=== PATIENT | male | born 1935 | race Caucasian/White ===

== ENCOUNTER → 2017-05-15 | Outpatient (CLI) | payer MEDICARE ==
[~2017-05-15] MED LIST: ATEN-155 PO; ATEN50TA PO; CEPH500C PO; CLIN300C3 PO; DOXY100C2; FINA1TAB10 PO; FINA5TAB6 PO; HYDR-1231 PO; OXYC-12 PO; SIMV20TA PO; SMV10T PO; SULF1TAB34 PO; TERA5CAP3 PO; TMSL.4C PO; TRAM-42 PO; WRF5T PO
--- NOTE | 2017-05-15 13:52 | Diagnostic Imaging Report ---
PROCEDURE: CT head without contrast. TECHNIQUE: Multiple contiguous axial images were obtained through the brain without the use of intravenous contrast. INDICATION: Trouble sleeping. F03.90. COMPARISON: 01/01/2014. FINDINGS: Prominent stable basal ganglia calcifications are seen bilaterally. There is no intracranial hemorrhage. There are mild periventricular and deep white matter hypodensities compatible with chronic microvascular ischemic changes, commonly seen at the patient's age. No hydrocephalus. No extra-axial fluid collection is seen. The calvarium, the paranasal sinuses, and orbits visualized portions appear grossly unremarkable. IMPRESSION: No acute process. Dictated by: Dictated on workstation # [id number]
== END ==
LOC: RAD 13:08
PROVIDERS: ATTEND Internal Medicine
DX: F03.90 Unspecified dementia, unspecified severity, without behavioral disturbance, psychotic disturbance, mood disturbance, and anxiety (principal)
CPT/HCPCS: 70450

== ENCOUNTER 2017-07-03 13:00 | Outpatient (CLI) | payer MEDICARE | END 2017-07-03 13:24 | disposition home or self-care (01) | LOC: SLEEP 13:00 | PROVIDERS: ATTEND Internal Medicine | DX: G47.33 Obstructive sleep apnea (adult) (pediatric) (principal) ==

== ENCOUNTER 2017-07-19 20:28 | Outpatient (CLI) | payer MEDICARE | END 2017-07-20 06:19 | disposition home or self-care (01) | LOC: SLEEP 20:28 | PROVIDERS: ATTEND Nurse Practitioner | DX: G47.33 Obstructive sleep apnea (adult) (pediatric) (principal) | CPT/HCPCS: 95811 ==

== ENCOUNTER → 2017-08-20 | Outpatient (CLI) | payer MEDICARE | LOC: CARD 09:01 | PROVIDERS: ATTEND Internal Medicine Cardiovascular Disease | DX: I48.2 Chronic atrial fibrillation (principal); R06.02 Shortness of breath; R01.2 Other cardiac sounds; E11.9 Type 2 diabetes mellitus without complications; E78.4 Other hyperlipidemia; I08.1 Rheumatic disorders of both mitral and tricuspid valves | CPT/HCPCS: 93306 ==

== ENCOUNTER → 2017-08-22 | Outpatient (CLI) | payer MEDICARE ==
[~2017-08-22] MED LIST changes: +CATHETER FLUSH 10 ML SYR IV PRN; +REGADENOSON 0.4 MG/5 ML SYR (LEXISCAN) IV ONE
[2017-08-22 09:09] VITALS: BP 131/86
== END ==
LOC: CARD 06:51
PROVIDERS: ATTEND Internal Medicine Cardiovascular Disease
DX: I48.2 Chronic atrial fibrillation (principal); R06.02 Shortness of breath; R01.2 Other cardiac sounds; E11.9 Type 2 diabetes mellitus without complications; E78.4 Other hyperlipidemia
CPT/HCPCS: 78452; 93017

== ENCOUNTER → 2017-09-18 | Outpatient (CLI) | payer MEDICARE ==
[~2017-09-18] MED LIST changes: +BARIUM SUSPENSION 2.1% (VANILLA SILQ) 450 ML PO ONE; -CATHETER FLUSH 10 ML SYR IV PRN; +IOHEXOL 350 MG/ML 100 ML (OMNIPAQUE 350) VIAL IV ONE; +NS 250 ML (IVPB) BAG IV ONE; -REGADENOSON 0.4 MG/5 ML SYR (LEXISCAN) IV ONE
[2017-09-18 07:50] LABS: BUN/CREATININE RATIO 15; CREATININE SERUM 0.85 MG/DL (0.60-1.30); GFR ESTIMATED > 60
--- NOTE | 2017-09-18 09:13 | Diagnostic Imaging Report ---
PROCEDURE: CT abdomen and pelvis with contrast. TECHNIQUE: Multiple contiguous axial images were obtained through the abdomen and pelvis after administration of intravenous contrast. INDICATION: Abdominal ventral herniation. Comparison is made to examination of 10/18/2008. FINDINGS: There are persistent coronary artery calcifications. No focal hepatic abnormality is identified. There is questionable calcification which may represent stone or sludge within the lumen of the gallbladder. No pancreatic, splenic or left adrenal gland abnormality is identified. 1 cm low-density nodule near the alfie of right adrenal gland is stable. There is excretion of contrast from both kidneys with probable tiny cyst in the posterior cortex on the right. There is no hydronephrosis. No free fluid is seen in the abdomen or pelvis. Similar to the previous study, there are multiple focal defects within the anterior abdominal wall with approximately 3 to the right of midline above the umbilicus and one to the left of midline. There are protruding small bowel loops through these defects without evidence of associated inflammation or obstruction. The appendix is unremarkable in appearance. There are occasional colonic diverticula. Partially opacified urinary bladder is stable and unremarkable in appearance. There is inguinal herniation of fat, greater on the left. There is moderate lumbar spondylosis most pronounced at L5-S1. IMPRESSION: Overall, findings have remained stable when compared to previous study. There are multiple anterior abdominal wall defects, greater on the right which contains protruding omental fat and small bowel loops. No definite incarceration or obstruction is identified. Overall, no significant change is seen. There has been increase in inguinal herniation of fat, greater on the left. Dictated by: Dictated on workstation # [id number]
== END ==
LOC: RAD 07:18
PROVIDERS: ATTEND Surgery
DX: K43.9 Ventral hernia without obstruction or gangrene (principal); K40.20 Bilateral inguinal hernia, without obstruction or gangrene, not specified as recurrent
CPT/HCPCS: 36415; 74177; 82565; 84520

== ENCOUNTER → 2017-09-19 | Outpatient (CLI) | payer MEDICARE ==
[~2017-09-19] MED LIST changes: -BARIUM SUSPENSION 2.1% (VANILLA SILQ) 450 ML PO ONE; -IOHEXOL 350 MG/ML 100 ML (OMNIPAQUE 350) VIAL IV ONE; -NS 250 ML (IVPB) BAG IV ONE
[2017-09-19 09:44] LABS: HEMOGLOBIN 14.5 G/DL (13.3-17.7); MEAN PLATELET VOLUME 9.4 FL (7.4-10.4); RED BLOOD COUNT 4.56 10^6/uL (4.35-5.85); RED CELL DISTRIBUTION WIDTH 13.3 % (10.0-14.5); WHITE BLOOD COUNT 9.2 10^3/uL (4.3-11.0)
[2017-09-19 10:07] LABS: ALBUMIN 4.4 GM/DL (3.2-4.5); BILIRUBIN,DIRECT 0.3 MG/DL (0.0-0.3); BILIRUBIN,INDIRECT 0.6 MG/DL; BILIRUBIN,TOTAL 0.9 MG/DL (0.1-1.0); TOTAL PROTEIN 7.4 GM/DL (6.4-8.2)
--- NOTE | 2017-09-19 11:13 | Diagnostic Imaging Report ---
PROCEDURE: US Gallbladder. TECHNIQUE: Multiple real-time grayscale images were obtained over the right upper quadrant in various projections. INDICATION: Abnormal CT scan of the gallbladder. FINDINGS: No focal hepatic abnormality is identified. There are multiple echogenic foci within the lumen of the gallbladder which measure up to approximately 0.7 cm in size. There is no associated gallbladder wall thickening or pericholecystic fluid. No biliary ductal dilatation is identified. Pancreas is largely obscured. No right renal, abdominal aortic or inferior vena caval abnormality is identified and there is no evidence of free fluid in the right upper quadrant. IMPRESSION: Cholecystolithiasis with otherwise unremarkable right upper quadrant ultrasound. Dictated by: Dictated on workstation # [id number]
== END ==
LOC: RAD 09:28
PROVIDERS: ATTEND Surgery
DX: K80.20 Calculus of gallbladder without cholecystitis without obstruction (principal)
CPT/HCPCS: 36415; 76705; 80076; 82150; 83690; 85027

== ENCOUNTER 2017-10-11 11:00 | Outpatient (CLI) | payer MEDICARE ==
[~2017-10-11] VITALS: Ht 177.8 cm; Wt 81.2 kg
[2017-10-11] MEDS ORDERED: ATEN25TA PO (11:02)
[2017-10-11] MEDS ORDERED: MECL-106 PO (11:02)
[2017-10-11] MEDS ORDERED: WARF-48 PO (11:02)
== END 2017-10-11 11:39 ==
LOC: PREOP 11:00
PROVIDERS: ATTEND Surgery
DX: Z01.818 Encounter for other preprocedural examination (principal); K43.9 Ventral hernia without obstruction or gangrene; K40.90 Unilateral inguinal hernia, without obstruction or gangrene, not specified as recurrent; K80.20 Calculus of gallbladder without cholecystitis without obstruction

== ENCOUNTER 2017-10-14 05:59 | Inpatient (IN) | payer MEDICARE ==
[2017-10-14] VITALS (15 sets, daily range): BP systolic 100–137; BP diastolic 60–87
[~2017-10-14] VITALS: Ht 177.8 cm; Wt 81.2 kg
[~2017-10-14 05:59] MED LIST changes: +ATEN25TA PO; +BUP/EPI 0.5% 1:200,000 (SENSORCAINE) 30 ML VIAL ONE; +MECL-106 PO; +WARF-48 PO
[2017-10-14] MEDS ORDERED: CELECOXIB 100 MG (CeleBREX) CAP PO ONE ×4 (06:15→11:45)
[2017-10-14] MEDS ORDERED: KETOROLAC 30 MG/ML VIAL IV SCH (06:15)
[2017-10-14] MEDS ORDERED: metroNIDAZOLE 500MG/100ML IVPB 100 ML IV ONE (06:15)
[2017-10-14] MEDS ORDERED: oxyCODONE ER 10 MG (OxyCONTIN CR) TAB PO ONE ×4 (06:15→11:45)
[2017-10-14] MEDS ORDERED: ceFAZolin INJECTION 1,000 MG in NS (IVPB) 100 ML IV ONE (06:15)
[2017-10-14] MEDS ORDERED: morphine INJ 10 MG/ML 1ML (SYR OR VIAL) IV PRN ×2 (06:15→08:30)
[2017-10-14] MEDS ORDERED: PREGABALIN 75 MG (LYRICA) CAP PO ONE ×3 (06:15→11:45)
[2017-10-14] MEDS ORDERED: ACETAMINOPHEN 500 MG TAB (TYLENOL) PO ONE ×3 (06:15→11:45)
[2017-10-14] MEDS ORDERED: PREGABALIN 75 MG (LYRICA) CAP ONE (06:26)
[2017-10-14] MEDS ORDERED: KETOROLAC 30 MG/ML VIAL ONE (06:26)
[2017-10-14] MEDS ORDERED: ACETAMINOPHEN 500 MG TAB (TYLENOL) ONE (06:27)
[2017-10-14] MEDS ORDERED: ceFAZolin 1,000 MG (ANCEF) VIAL ONE (06:27)
[2017-10-14] MEDS ORDERED: metroNIDAZOLE 500MG/100ML IVPB 100 ML ONE (06:27)
[2017-10-14] MEDS ORDERED: FAMOTIDINE 20MG/2ML IV (PEPCID) ONE (06:27)
[2017-10-14] MEDS ORDERED: NS (IVPB) 100 ML ONE (06:28)
[2017-10-14] MEDS ORDERED: fentaNYL INJECTION 100 MCG/2 ML AMP ONE (06:28)
[2017-10-14] MEDS ORDERED: proPOfol 200 MG/20 ML (DIPRIVAN) VIAL IV ONE (06:29)
[2017-10-14] MEDS ORDERED: LIDOCAINE PF 2% 5 ML (XYLOCAINE) VIAL ONE (06:29)
[2017-10-14] MEDS ORDERED: KETAMINE HCL 100 MG/ML 5 ML VIAL ONE (06:30)
[2017-10-14] MEDS ORDERED: FAMOTIDINE 20MG/2ML IV (PEPCID) IV ONE (06:30)
--- NOTE | 2017-10-14 06:45 | Progress Note-Pre Operative ---
Pre-Operative Progress Note H&P Reviewed The H&P was reviewed, patient examined and no changes noted. Date Seen by Provider: Oct 10, 2017 Time Seen by Provider: 11:25 Date H&P Reviewed: Oct 14, 2017 Time H&P Reviewed: 06:44 Pre-Operative Diagnosis: Ventral hernia,brain Ing Herniae & gallstones SELVIN MARIN MD Oct 14, 2017 6:45 am
[2017-10-14] MEDS: LACTATED RINGERS 1,000 ML IV PRN ×2 (06:48→09:45)
[2017-10-14] MEDS: KETOROLAC 30 MG/ML VIAL IV SCH ×3 (06:55→20:42)
[2017-10-14] MEDS ORDERED: ONDANSETRON 4 MG/2 ML (SDV) Z0FRAN ONE (10:24)
[2017-10-14] MEDS ORDERED: ROCURONIUM 10 MG/ML 5 ML SYRINGE IV ONE ×2 (10:24)
[2017-10-14] MEDS ORDERED: LIDOCAINE PF 0.5% 50 ML (XYLOCAINE) VIAL ONE ×2 (10:24→10:54)
[2017-10-14] MEDS ORDERED: NEOSTIGMINE 1 MG/ML 5 ML SYRINGE ONE (11:35)
[2017-10-14] MEDS ORDERED: GLYCOPYRROLATE 0.2 MG/ML (ROBINUL) 2 ML VIAL ONE (11:35)
--- NOTE | 2017-10-14 11:35 | Operative Report ---
Operative Report Date of Procedure/Surgery Oct 14, 2017 Surgeon (s) SELVIN MARIN MD Integrity Manager (s): n/a Post-Operative Diagnosis Same Procedure Performed 1. Robotic assisted repair of ventral hernia with biologic mesh 2. Robotic assisted repair of bilateral inguinal herniae with biologic mesh 3. Robotic-assisted cholecystectomy Description of Procedure Anesthesia Type: General Estimated blood loss (mL): Minimal Specimen(s) collected/removed Gallbladder Description of the Procedure Indication for the procedures: This gentleman presented with a symptomatic, multicomponent ventral hernia in relation to his upper abdomen, containing small bowel. During the evaluation, bilateral inguinal herniae and gallstones became evident. He was therefore offered minimally invasive approach to address all 3 of them, using robotic assistance. Due to the contaminated nature of the wound, in view of cholecystectomy, using biologic mesh was felt to be appropriate. Informed consent was obtained after reviewing the operative details and complications of hematoma, uro-respiratory dysfunction and recurrence of the hernia. Description of the procedures: He was placed supine on the operating table and general anesthesia induced using an endotracheal tube. A gram of Ancef was administered intravenously as prophylaxis against wound infection. Sequential compression devices were placed around his legs, to minimize the risk of venous thrombosis. A San catheter was placed decompress the bladder during surgery. It was removed at the end of the operation. Abdomen was prepared and draped in the usual sterile manner. Pneumoperitoneum was established using a Veress needle introduced over the left subcostal margin. Intra-abdominal pressure was maintained at 15 mmHg, using carbon dioxide insufflation. A 12 millimeter trocar was placed and anatomy visualized using the high definition, 3-dimensional laparoscope, associated with the da Jeremy system. Ventral hernia containing loops of small bowel and omentum became evident. Under direct view, I placed another 12 mm trocar along the left side of the abdomen, overlying the mid axillary line followed by an 8 mm trocar over the left lower quadrant. An additional 12 mm trocar was placed over the left subcostal margin, slightly medially, to allow passing sutures during the operation. The robotic system was then docked in place. Omentum and the small bowel were taken down using robotic scissors without any iatrogenic injury. A total of 5 effects, adjacent to each other, measuring 1-2 cm in length where encountered. I elected to repair the ventral hernia at the end. The robotic camera was turned to 30 down position and we proceeded with cholecystectomy. CHOLECYSTECTOMY: An 8 mm trocar was placed over the right side of the abdomen and the fundus retracted cephalad. Infundibulum was grasped with fenestrated Cadiere forceps and the peritoneum overlying Calot"s triangle incised using cautery, delineating the cystic duct and artery. Both were divided between locking clips. Cholecystectomy was completed using the same device. The gallbladder was then placed in an Endo Catch bag, to be removed via the 12 mm trocar over the left upper quadrant at the end of the operation. REPAIR OF BILATERAL INGUINAL HERNIAE: The robotic system was undocked momentarily and the patient turned into Trendelenburg position, to allow loops of bowel to be displaced out of the pelvis. It was then re-docked, identifying bilateral, direct inguinal herniae. The atrium was incised laterally, continuing the dissection in a medial direction, entering the preperitoneal space. Hernia contents were reduced on each side and the defect was closed with 20V LOC suture without tension, using robotic assistance. A biologic mesh ( PHASIX), measuring 8 x 6 cm in diameter was used for reinforcing each side. It was secured to Shawn's ligament and the lateral abdominal musculature with 2 -0 Vicryl suture with robotic assistance. Peritoneum was then closed with 20V LOC suture using robotic assistance. MESH REPAIR OF VENTRAL HERNIA: The robotic system was rearranged in preparation for repairing the ventral hernia. The defects were closed using 0, nonabsorbable V LOC sutures with the robotic assistance without much tension. It was then reinforced using a biologic mesh measuring 10 x 20 cm in diameter. The mesh was held up using a Vicryl suture, facilitating anchoring of the edges of the mesh. This was accomplished with 20V LOC sutures, using robotic assistance. Hemostasis was satisfactory and the operation concluded. The fascia over each of the incisions was closed use or 1 Vicryl. Skin incisions were closed using 4-0 Vicryl, in a subcuticular fashion. Uro-0.5 percent Marcaine with epinephrine infiltrated along the incisions, both re- preemptively and at the conclusion of the operation. He tolerated the procedure well, was extubated in the operating room and taken to the recovery room in a stable condition. San catheter was removed at the end of the operation. Findings of the Procedure See op report Allergies and Home Medications Allergies Coded Allergies: Sulfa (Sulfonamide Antibiotics) (Unverified Allergy, Intermediate, CONFUSION/WEAKNESS, 10/11/17) Home Medications Atenolol 25 Mg Tablet, 25 MG PO DAILY, (Reported) Finasteride 5 Mg Tablet, 5 MG PO DAILY, (Reported) Meclizine HCl 25 Mg Tablet, 25 MG PO TID PRN for VERTIGO, (Reported) Simvastatin 20 Mg Tablet, 20 MG PO HS, (Reported) Terazosin HCl 5 Mg Capsule, 5 MG PO DAILY, (Reported) Warfarin Sodium 5 Mg Tablet, 5 MG PO DAILY, (Reported) Patient Home Medication List Home Medication List Reviewed: Yes SELVIN MARIN MD Oct 14, 2017 11:35 am
[2017-10-14] MEDS ORDERED: SEVOFLURANE (ULTANE) 15 ML INHAL SOLN ONE (11:36)
[2017-10-14] MEDS: fentaNYL INJECTION 100 MCG/2 ML AMP IVP PRN (12:15)
[2017-10-14] MEDS: morphine INJ 10 MG/ML 1ML (SYR OR VIAL) IV PRN ×2 (13:03→17:09)
[2017-10-14] MEDS ORDERED: ATEN50TA PO (16:22)
[2017-10-14] MEDS ORDERED: HYDR-3812 PO (16:22)
[2017-10-14] MEDS ORDERED: SIMV40TA4 PO (16:22)
[2017-10-14] MEDS ORDERED: ESZO3TAB30 PO (16:22)
[2017-10-14] MEDS: warFARin 5 MG (COUMADIN) TAB PO SCH (20:42)
[2017-10-14] MEDS: SIMvastatin 20 MG (ZOCOR) TAB PO SCH (20:43)
[2017-10-15] VITALS (12 sets, daily range): BP systolic 97–148; BP diastolic 55–92
[2017-10-15] MEDS: morphine INJ 10 MG/ML 1ML (SYR OR VIAL) IV PRN ×4 (02:20→15:59)
[2017-10-15] MEDS: KETOROLAC 30 MG/ML VIAL IV SCH ×4 (02:23→20:42)
--- NOTE | 2017-10-15 07:11 | Anesthesia-General Post-Op ---
General Patient Condition Mental Status/LOC: Same as Preop Cardiovascular: Satisfactory Nausea/Vomiting: Absent Respiratory: Satisfactory Pain: Controlled Complications: Absent Post Op Complications Complications None Follow Up Care/Instructions Patient Instructions None needed. Anesthesia/Patient Condition Patient Condition Patient is doing well, no complaints, stable vital signs, no apparent adverse anesthesia problems. No complications reported per nursing. МАРИНА CHIU CRNA Oct 15, 2017 07:11
[2017-10-15] MEDS: ATENOLOL 25 MG (TENORMIN) TAB PO SCH (07:44)
[2017-10-15] MEDS ORDERED: PATIENT MAY USE OWN MED,SINGLE MED PO SCH (08:15)
[2017-10-15] MEDS: ENOXAPARIN 60 MG/0.6 ML (LOVENOX) SYR SC SCH ×2 (10:16→20:42)
[2017-10-15] MEDS ORDERED: TERAZOSIN 5 MG (HYTRIN) CAPSULE PO SCH (15:15)
[2017-10-15] MEDS: FINASTERIDE (PROSCAR) 5 MG TAB PO SCH (16:00)
--- OUTSIDE RECORDS SUMMARY | 2017-10-15 16:46 | XMS REPORT | Continuity of Care Document ---
Author Author [facility] Address Unknown Phone Unavailable Allergies Active Description Code Type Severity Reaction Onset Reported/Identified Relationship to Patient Clinical Status Yes Sulfa (Sulfonamide Antibiotics) [id number] Drug Allergy Unknown N/A 2013 Yes Sulfa (Sulfonamide Antibiotics) [id number] Drug Allergy Moderate CONFUSION/WEAKN 10/11/2017 Medications There is no data. Problems Date Dx Coded Attending Type Code Diagnosis Diagnosed By 01/01/2010 Ot 682.0 01/01/2010 Ot 998.59 01/13/2010 Ot 272.4 01/13/2010 Ot 276.1 01/13/2010 Ot 276.52 01/13/2010 Ot 401.9 01/13/2010 Ot 427.31 01/13/2010 Ot 486 01/13/2010 Ot 600.00 01/13/2010 Ot 782.1 01/13/2010 Ot E931.0 01/13/2010 Ot V10.05 01/13/2010 Ot V10.83 01/13/2010 Ot V12.2 01/13/2010 Ot V15.82 01/13/2010 Ot V45.72 01/13/2010 Ot V58.61 11/16/2013 TANIA BOB, SLEVIN Hall Ot 401.9 HYPERTENSION NOS 11/16/2013 SELVIN MARIN MD Ot 427.31 ATRIAL FIBRILLATION 11/16/2013 SELVIN MARIN MD Ot 562.10 DIVERTICULOSIS COLON (W/O MENT OF HEMORR 11/16/2013 SELVIN MARIN MD Ot 792.1 ABN FIND-STOOL CONTENTS 11/16/2013 SELVIN MARIN MD Ot V12.72 PERSONAL HISTORY OF COLONIC POLYPS 11/16/2013 SELVIN MARIN MD Ot V58.61 ANTICOAGULANTS,LT,CURRENT USE 01/11/2014 KENJI LENNON PHARMACY TECHNICIAN PER DIEM Ot 790.29 OTHER ABNORMAL GLUCOSE 01/11/2014 KENJI LENNON PHARMACY TECHNICIAN PER DIEM Ot 834.10 DISLOC FINGER NOS-OPEN 01/11/2014 KENJI LENNON PHARMACY TECHNICIAN PER DIEM Ot E849.0 ACCIDENT IN HOME 01/11/2014 KENJI LENNON PHARMACY TECHNICIAN PER DIEM Ot E888.1 FALL STRIKING OBJECT NEC 01/11/2014 KENJI LENNON PHARMACY TECHNICIAN PER DIEM Ot V58.61 ANTICOAGULANTS,LT,CURRENT USE 06/18/2014 Ot 486 06/18/2014 TANIA BOB, SELVIN Hall Ot V72.84 06/23/2014 TANIA BOB, SELVIN M Ot 211.3 06/23/2014 TANIA BOB, SELVIN Hall Ot 211.4 06/23/2014 TANIA BOB, SELVIN Hall Ot 455.0 06/23/2014 TANIA BOB, SELVIN Hall Ot 455.3 06/23/2014 TANIA BOB, SELVIN Hall Ot 211.3 06/23/2014 TANIA BOB, SELVIN Hall Ot 211.4 06/23/2014 TANIA BOB, SELVIN Hall Ot 455.0 06/23/2014 TANIA BOB, SELVIN Hall Ot 455.3 06/25/2014 TANIA BOB, SELVIN Hall Ot 211.3 06/25/2014 TANIA BOB, SELVIN Hall Ot 211.4 06/25/2014 TANIA BOB, SELVIN Hall Ot 455.0 06/25/2014 TANIA BOB, SELVIN Hall Ot 455.3 07/02/2014 CRISTINE CLANCY DO V05.3 HEP B (PED/ADOL 3 DOSE) DX 07/02/2014 CRISTINE CLANCY DO V05.8 ZOSTAVAX DX 07/19/2014 TANIA BOB, SELVIN Hall Ot 211.3 07/19/2014 TANIA BOB, SELVIN Hall Ot 211.4 07/19/2014 SELVIN MARIN MD Ot 455.0 07/19/2014 TANIA BOB, SELVIN Hall Ot 455.3 08/23/2014 TANIA BOB, SELVIN Hall Ot 211.3 08/23/2014 TANIA BOB, SELVIN Hall Ot 211.4 08/23/2014 TANIA BOB, SELVIN Hall Ot 455.0 08/23/2014 SELVIN MARIN MD Ot 455.3 03/09/2015 Ot 486 03/09/2015 TANIA BOB, SELVIN Hall Ot V72.84 03/09/2015 SELVIN MARIN MD Ot 211.3 03/09/2015 TANIA BOB, SELVIN M Ot 211.4 03/09/2015 TANIA BOB, SELVIN M Ot 455.0 03/09/2015 TANIA BOB, SELVIN M Ot 455.3 03/09/2015 TANIA BOB, SELVIN M Ot V72.84 03/09/2015 TANIA BOB, SELVIN M Ot 709.9 03/09/2015 TANIA BOB, SELVIN M Ot V72.83 03/09/2015 TANIA BOB, SELVIN M Ot V74.8 03/09/2015 TANIA BOB, SELVIN M Ot 173.30 UNSP MALIGN NEOPLASM OF SKIN OF OTH UN 03/09/2015 TANIA BOB, SELVIN M Ot 427.9 CARDIAC DYSRHYTHMIA NOS 05/13/2017 TANIA BOB, SELVIN M Ot V72.84 EXAM PRE-OPERATIVE NOS 05/13/2017 TANIA BOB, SELVIN M Ot 211.3 BENIGN NEOPLASM LG BOWEL 05/13/2017 TANIA BOB, SELVIN M Ot 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 05/13/2017 TANIA BOB, SELVIN M Ot 455.0 INT HEMORRHOID W/O COMPL 05/13/2017 TANIA BOB, SELVIN M Ot 455.3 EXT HEMORRHOID W/O COMPL 05/13/2017 TANIA BOB, SELVIN M Ot V72.84 EXAM PRE-OPERATIVE NOS 05/13/2017 TANIA BOB, SELVIN M Ot 709.9 SKIN DISORDER NOS 05/13/2017 TANIA BOB, SELVIN M Ot V72.83 EXAM PRE-OPERATIVE NEC 05/13/2017 TANIA BOB, SELVIN M Ot V74.8 SCREEN-BACTERIAL DIS NEC 05/15/2017 TANIA BOB, SELVIN M Ot V72.84 EXAM PRE-OPERATIVE NOS 05/15/2017 TANIA BOB, SELVIN M Ot 211.3 BENIGN NEOPLASM LG BOWEL 05/15/2017 TANIA BOB, SELVIN M Ot 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 05/15/2017 TANIA BOB, SELVIN M Ot 455.0 INT HEMORRHOID W/O COMPL 05/15/2017 TANIA BOB, SELVIN M Ot 455.3 EXT HEMORRHOID W/O COMPL 05/15/2017 TANIA BOB, SELVIN M Ot V72.84 EXAM PRE-OPERATIVE NOS 05/15/2017 TANIA BOB, SELVIN Hall Ot 709.9 SKIN DISORDER NOS 05/15/2017 TANIA BOB, SELVIN Hall Ot V72.83 EXAM PRE-OPERATIVE NEC 05/15/2017 SELVIN MARIN MD Ot V74.8 SCREEN-BACTERIAL DIS NEC 06/06/2017 TIFF LANCE DO Ot F03.90 UNSPECIFIED DEMENTIA WITHOUT BEHAVIORAL 06/19/2017 TIFF LANCE DO Ot F03.90 UNSPECIFIED DEMENTIA WITHOUT BEHAVIORAL 07/02/2017 TIFF LANCE DO Ot G47.33 OBSTRUCTIVE SLEEP APNEA (ADULT) (PEDIATR 07/03/2017 LANCETIFF BARRETT DO Ot G47.33 OBSTRUCTIVE SLEEP APNEA (ADULT) (PEDIATR 07/11/2017 LANCETIFF BARRETT DO Ot G47.33 OBSTRUCTIVE SLEEP APNEA (ADULT) (PEDIATR 07/16/2017 ROSHAN RODRIGUEZ APRN Ot G47.33 OBSTRUCTIVE SLEEP APNEA (ADULT) (PEDIATR 07/16/2017 ROSHAN RODRIGUEZ APRN Ot G47.33 OBSTRUCTIVE SLEEP APNEA (ADULT) (PEDIATR 07/16/2017 TANIA BOB, SELVIN Hall Ot V72.84 EXAM PRE-OPERATIVE NOS 07/16/2017 TANIA BOB, SELVIN Hall Ot 211.3 BENIGN NEOPLASM LG BOWEL 07/16/2017 SELVIN MARIN MD Ot 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 07/16/2017 SELVIN MARIN MD Ot 455.0 INT HEMORRHOID W/O COMPL 07/16/2017 SELVIN MARIN MD Ot 455.3 EXT HEMORRHOID W/O COMPL 07/16/2017 SELVIN MARIN MD Ot V72.84 EXAM PRE-OPERATIVE NOS 07/16/2017 TANIA BOB, SELVIN Hall Ot 709.9 SKIN DISORDER NOS 07/16/2017 TANIA BOB, SELVIN Hall Ot V72.83 EXAM PRE-OPERATIVE NEC 07/16/2017 SELVIN MARIN MD Ot V74.8 SCREEN-BACTERIAL DIS NEC 07/16/2017 TIFF LANCE DO Ot F03.90 UNSPECIFIED DEMENTIA WITHOUT BEHAVIORAL 07/16/2017 ROSHAN RODRIGUEZ PHARMACY TECHNICIAN PER DIEM Ot G47.33 OBSTRUCTIVE SLEEP APNEA (ADULT) (PEDIATR 07/19/2017 SELVIN MARIN MD Ot V72.84 EXAM PRE-OPERATIVE NOS 07/19/2017 SELVIN MARIN MD Ot 211.3 BENIGN NEOPLASM LG BOWEL 07/19/2017 SELVIN MARIN MD Ot 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 07/19/2017 SELVIN MARIN MD Ot 455.0 INT HEMORRHOID W/O COMPL 07/19/2017 SELVIN MARIN MD Ot 455.3 EXT HEMORRHOID W/O COMPL 07/19/2017 SELVIN MARIN MD Ot V72.84 EXAM PRE-OPERATIVE NOS 07/19/2017 SELVIN MARIN MD Ot 709.9 SKIN DISORDER NOS 07/19/2017 SELVIN MARIN MD Ot V72.83 EXAM PRE-OPERATIVE NEC 07/19/2017 SELVIN MARIN MD Ot V74.8 SCREEN-BACTERIAL DIS NEC 07/19/2017 TIFF LANCE DO Ot F03.90 UNSPECIFIED DEMENTIA WITHOUT BEHAVIORAL 07/19/2017 ROSHAN RODRIGUEZ PHARMACY TECHNICIAN PER DIEM Ot G47.33 OBSTRUCTIVE SLEEP APNEA (ADULT) (PEDIATR 07/20/2017 ROSHAN RODRIGUEZ PHARMACY TECHNICIAN PER DIEM Ot G47.33 OBSTRUCTIVE SLEEP APNEA (ADULT) (PEDIATR 07/24/2017 ROSHAN RODRIGUEZ PHARMACY TECHNICIAN PER DIEM Ot G47.33 OBSTRUCTIVE SLEEP APNEA (ADULT) (PEDIATR 08/21/2017 JONNIE BOB FACC, NICKI FACP CCDS Ot E11.9 TYPE 2 DIABETES MELLITUS WITHOUT COMPLIC 08/21/2017 JONNIE BOB FACC, NICKI FACP CCDS Ot E78.4 OTHER HYPERLIPIDEMIA 08/21/2017 JONNIE BOB FACC, NICKI FACP CCDS Ot I08.1 RHEUMATIC DISORDERS OF BOTH MITRAL AND T 08/21/2017 NICKI CRISTINA MD, FACC FACP CCDS Ot I48.2 CHRONIC ATRIAL FIBRILLATION 08/21/2017 NICKI CRISTINA MD, FACC FACP CCDS Ot R01.2 OTHER CARDIAC SOUNDS 08/21/2017 JONNIE BOB FACC, NICKI FACP CCDS Ot R06.02 SHORTNESS OF BREATH 08/21/2017 JONNIE BOB FACC, NICKI FACP CCDS Ot E11.9 TYPE 2 DIABETES MELLITUS WITHOUT COMPLIC 08/21/2017 NICKI CRISTINA MD, FACC FACP CCDS Ot E78.4 OTHER HYPERLIPIDEMIA 08/21/2017 JONNIE BOB FACC, NICKI FACP CCDS Ot I08.1 RHEUMATIC DISORDERS OF BOTH MITRAL AND T 08/21/2017 JONNIE MD FACC, ALI FACP CCDS Ot I48.2 CHRONIC ATRIAL FIBRILLATION 08/21/2017 JONNIE BOB FACC, ALI FACP CCDS Ot R01.2 OTHER CARDIAC SOUNDS 08/21/2017 JONNIE PATELC, ALI FACP CCDS Ot R06.02 SHORTNESS OF BREATH 09/11/2017 JONNIE BOB FACC, ALI FACP CCDS Ot E11.9 TYPE 2 DIABETES MELLITUS WITHOUT COMPLIC 09/11/2017 JONNIE BOB FACC, ALI FACP CCDS Ot E78.4 OTHER HYPERLIPIDEMIA 09/11/2017 JONNIE BOB FACC, ALI FACP CCDS Ot I08.1 RHEUMATIC DISORDERS OF BOTH MITRAL AND T 09/11/2017 JONNIE BOB FACC, ALI FACP CCDS Ot I48.2 CHRONIC ATRIAL FIBRILLATION 09/11/2017 JONNIE BOB FACC, ALI FACP CCDS Ot R01.2 OTHER CARDIAC SOUNDS 09/11/2017 JONNIE BOB FACC, ALI FACP CCDS Ot R06.02 SHORTNESS OF BREATH 09/13/2017 JONNIE BOB FACC, ALI FACP CCDS Ot E11.9 TYPE 2 DIABETES MELLITUS WITHOUT COMPLIC 09/13/2017 JONNIE BOB FACC, ALI FACP CCDS Ot E78.4 OTHER HYPERLIPIDEMIA 09/13/2017 JONNIE BOB FACC, ALI FACP CCDS Ot I48.2 CHRONIC ATRIAL FIBRILLATION 09/13/2017 JONNIE BOB FACC, ALI FACP CCDS Ot R01.2 OTHER CARDIAC SOUNDS 09/13/2017 JONNIE BOB FACC, ALI FACP CCDS Ot R06.02 SHORTNESS OF BREATH 09/18/2017 JONNIE BOB FACC, ALI FACP CCDS Ot E11.9 TYPE 2 DIABETES MELLITUS WITHOUT COMPLIC 09/18/2017 JONNIE BOB FACC, ALI FACP CCDS Ot E78.4 OTHER HYPERLIPIDEMIA 09/18/2017 JONNIE PATELC, ALI FACP CCDS Ot I08.1 RHEUMATIC DISORDERS OF BOTH MITRAL AND T 09/18/2017 JONNIE PATELC, ALI FACP CCDS Ot I48.2 CHRONIC ATRIAL FIBRILLATION 09/18/2017 JONNIE PATELC, ALI FACP CCDS Ot R01.2 OTHER CARDIAC SOUNDS 09/18/2017 JONNIE PATELC, ALI FACP CCDS Ot R06.02 SHORTNESS OF BREATH 09/18/2017 JONNIE PATELC, ALI FACP CCDS Ot E11.9 TYPE 2 DIABETES MELLITUS WITHOUT COMPLIC 09/18/2017 JONNIE BOB [facility], ALI FACP CCDS Ot E78.4 OTHER HYPERLIPIDEMIA 09/18/2017 JONNIE BOB [facility] CCDS Ot I48.2 CHRONIC ATRIAL FIBRILLATION 09/18/2017 JONNIE BOB [facility], ALI FACP CCDS Ot R01.2 OTHER CARDIAC SOUNDS 09/18/2017 JONNIE BOB [facility] CCDS Ot R06.02 SHORTNESS OF BREATH 09/19/2017 TANIA BOB, SELVIN Hall Ot K40.20 BI INGUINAL HERNIA, W/O OBST OR GANGRENE 09/19/2017 SELVIN MARIN MD Ot K43.9 VENTRAL HERNIA WITHOUT OBSTRUCTION OR GA 09/20/2017 SELVIN MARIN MD Ot K80.20 CALCULUS OF GALLBLADDER W/O CHOLECYSTITI 10/09/2017 SELVIN MARIN MD Ot K40.90 UNIL INGUINAL HERNIA, W/O OBST OR GANGR, 10/09/2017 SELVIN MARIN MD Ot K43.9 VENTRAL HERNIA WITHOUT OBSTRUCTION OR GA 10/09/2017 SELVIN MARIN MD Ot K80.20 CALCULUS OF GALLBLADDER W/O CHOLECYSTITI 10/09/2017 SELVIN MARIN MD Ot Z01.818 ENCOUNTER FOR OTHER PREPROCEDURAL EXAMIN 10/11/2017 SELVIN MARIN MD Ot K40.90 UNIL INGUINAL HERNIA, W/O OBST OR GANGR, 10/11/2017 SELVIN MARIN MD Ot K43.9 VENTRAL HERNIA WITHOUT OBSTRUCTION OR GA 10/11/2017 SELVIN MARIN MD Ot K80.20 CALCULUS OF GALLBLADDER W/O CHOLECYSTITI 10/11/2017 SELVIN MARIN MD Ot Z01.818 ENCOUNTER FOR OTHER PREPROCEDURAL EXAMIN 10/11/2017 SELVIN MARIN MD Ot K40.90 UNIL INGUINAL HERNIA, W/O OBST OR GANGR, 10/11/2017 SELVIN MARIN MD Ot K43.9 VENTRAL HERNIA WITHOUT OBSTRUCTION OR GA 10/11/2017 SELVIN MARIN MD Ot K80.20 CALCULUS OF GALLBLADDER W/O CHOLECYSTITI 10/11/2017 SELVIN MARIN MD Ot Z01.818 ENCOUNTER FOR OTHER PREPROCEDURAL EXAMIN Procedures There is no data. Results Test Result Range [id number] - 09/18/17 07:27 Serum or plasma urea nitrogen measurement (mass/volume) 13 mg/dL 7-18 Serum or plasma creatinine measurement (mass/volume) 0.85 mg/dL 0.60-1.30 Serum or plasma urea nitrogen/creatinine mass ratio 15 NRG Serum or plasma creatinine measurement with calculation of estimated glomerular filtration rate > NRG Automated blood complete blood count (hemogram) panel - 09/19/17 09:36 Blood leukocytes automated count (number/volume) 9.2 10*3/uL 4.3-11.0 Blood erythrocytes automated count (number/volume) 4.56 10*6/uL 4.35-5.85 Venous blood hemoglobin measurement (mass/volume) 14.5 g/dL 13.3-17.7 Blood hematocrit (volume fraction) 44 % 40-54 Automated erythrocyte mean corpuscular volume 96 [foz_us] 80-99 Automated erythrocyte mean corpuscular hemoglobin (mass per erythrocyte) 32 pg 25-34 Automated erythrocyte mean corpuscular hemoglobin concentration measurement ( mass/volume) 33 g/dL 32-36 Automated erythrocyte distribution width ratio 13.3 % 10.0-14.5 Automated blood platelet count (count/volume) 235 10*3/uL 130-400 Automated blood platelet mean volume measurement 9.4 [foz_us] 7.4-10.4 Liver function panel (serum or plasma alk phos, alb, total and direct bili, total protein, ALT, AST) - 09/19/17 09:36 Serum or plasma total bilirubin measurement (mass/volume) 0.9 mg/dL 0.1-1.0 Serum or plasma alkaline phosphatase measurement (enzymatic activity/volume) 52 U/L 40-136 Serum or plasma aspartate aminotransferase measurement (enzymatic activity/ volume) 25 U/L 5-34 Serum or plasma alanine aminotransferase measurement (enzymatic activity/volume ) 23 U/L 0-55 Serum or plasma protein measurement (mass/volume) 7.4 g/dL 6.4-8.2 Serum or plasma albumin measurement (mass/volume) 4.4 g/dL 3.2-4.5 Bilirubin direct 0.3 mg/dL 0.0-0.3 Serum or plasma indirect bilirubin measurement (mass/volume) 0.6 mg/ dL NRG Serum or plasma amylase measurement (enzymatic activity/volume) - 09/19/17 09: 36 Serum or plasma amylase measurement (enzymatic activity/volume) 60 U /L 25-125 Lipase - 09/19/17 09:36 Lipase 11 U/L 8-78 Capillary blood glucose measurement by glucometer (mass/volume) - 10/14/17 06: 19 Capillary blood glucose measurement by glucometer (mass/volume) 107 mg/dL 70-110 Encounters ACCT No. Visit Date/Time Discharge Status Pt. Type Provider Facility Loc./Unit Complaint [id number] 07/02/2014 13:09:00 07/02/2014 23:59:59 CLS Outpatient CRISTINE CLANCY DO [id number] 10/11/2017 08:00:00 10/11/2017 23:59:59 CLS Preadmit SELVIN MARIN MD Via [facility] SDC VENTRAL HERNIA,BILAT INGUINAL HERNIA/GALLSTONES [id number] 10/11/2017 11:00:00 10/11/2017 11:39:00 DIS Outpatient SELVIN MARIN MD Via [facility] PREOP VENTRAL HERNIA, INGUINAL HERNIA,GALLSTONES [id number] 09/19/2017 09:28:00 09/19/2017 23:59:59 CLS Outpatient SELVIN MARIN MD Via [facility] RAD ABN CT/RUQ PAIN [id number] 09/18/2017 07:18:00 09/18/2017 23:59:59 CLS Outpatient SELVIN MARIN MD Via [facility] RAD VENTRAL HERNIA [id number] 08/22/2017 06:51:00 08/22/2017 23:59:59 CLS Outpatient NICKI CRISTINA MD, FACC, FACP CCDS Via [facility] CARD I48.2 CHRONIC AFIB [id number] 08/20/2017 09:01:00 08/20/2017 23:59:59 CLS Outpatient NICKI CRISTINA MD, FACC, FACP CCDS [facility] CARD I48.2 CHRONIC ATRIAL FIBRILLATION [id number] 08/01/2017 12:05:00 08/01/2017 23:59:59 CLS Preadmit TIFF LANCE DO Via [facility] SLEEP OBSTRUCTIVE SLEEP APNEA [id number] 07/19/2017 20:28:00 07/20/2017 06:19:00 DIS Outpatient ROSHAN RODRIGUEZ APRN Via [facility] SLEEP G47.33 [id number] 07/03/2017 13:00:00 07/03/2017 13:24:00 DIS Outpatient TIFF LANCE DO Via [facility] SLEEP OBSTRUCTIVE SLEEP APNEA [id number] 05/15/2017 13:08:00 05/15/2017 23:59:59 CLS Outpatient TIFF LANCE DO Via [facility] RAD F03.90 [id number] 03/09/2015 06:00:00 03/09/2015 10:50:00 DIS Outpatient SELVIN MARIN MD Via [facility] SKIN LESION BILATERAL CHEEKS [id number] 03/04/2015 08:46:00 03/04/2015 23:59:59 CLS Outpatient SELVIN MARIN MD Via [facility] PREOP SKIN LESIONS BILATERAL CHEEKS [id number] 06/21/2014 07:53:00 06/21/2014 23:59:59 CLS Outpatient SELVIN MARIN MD Via [facility] RECTAL BLEEDING [id number] 06/17/2014 07:17:00 06/17/2014 23:59:59 CLS Outpatient SELVIN MARIN MD Via [facility] PREOP RECTAL BLEEDING [id number] 01/11/2014 20:31:00 01/11/2014 22:25:00 DIS Emergency KENJI LENNON APRN Via [facility] ER L PINKY INJ [id number] 11/16/2013 06:33:00 11/16/2013 09:40:00 DIS Outpatient SELVIN MARIN MD Via [facility] BLOOD IN STOOLS [id number] 11/11/2013 07:35:00 11/11/2013 23:59:59 CLS Outpatient SELVIN MARIN MD Via [facility] PREOP BLOOD IN STOOLS [id number] 06/18/2014 10:13:00 Document Registration [id number] 02/03/2010 11:48:00 Document Registration [id number] 01/10/2010 13:34:00 Document Registration [id number] 01/01/2010 15:09:00 Document Registration [id number] 03/09/2015 06:40:15 ACT Document Registration
--- NOTE | 2017-10-15 17:17 | Progress Note-Standard ---
Standard Progress Note Progress Notes/Assess & Plan Date Seen by Provider: Oct 15, 2017 Time Seen by Provider: 15:25 Progress/Assessment & Plan pain control much improved. Incisions dry. Ecchymosis of the scrotum and the penis, reassured. Patient has developed urinary retention requiring catheterization. Previous medications prescribed by the urologist will be restarted today. Encouraged ambulation. Transferred to the floor earlier today. Final Diagnosis ventral hernia, bilateral inguinal herniae, gallstones, postoperative urinary retention SELVIN MARIN MD Oct 15, 2017 5:17 pm
[2017-10-15] MEDS: warFARin 5 MG (COUMADIN) TAB PO SCH (18:01)
[2017-10-15] MEDS: SIMvastatin 20 MG (ZOCOR) TAB PO SCH (20:42)
[2017-10-15] MEDS: LACTATED RINGERS 1,000 ML IV PRN (20:49)
[2017-10-16] VITALS: BP 118/63
[2017-10-16] MEDS: KETOROLAC 30 MG/ML VIAL IV SCH ×2 (02:15→02:52)
[2017-10-16 03:43] VITALS: BP 145/82
[2017-10-16 07:30] VITALS: BP 165/93
[2017-10-16] MEDS: FINASTERIDE (PROSCAR) 5 MG TAB PO SCH (08:38)
[2017-10-16] MEDS: ATENOLOL 25 MG (TENORMIN) TAB PO SCH (08:38)
[2017-10-16] MEDS: ENOXAPARIN 60 MG/0.6 ML (LOVENOX) SYR SC SCH (08:38)
[2017-10-16 09:36] LABS: INR 1.5 (0.8-1.4); PROTHROMBIN TIME PATIENT 18.5 SEC (12.2-14.7)
[2017-10-16] MEDS ORDERED: ACHD5005 PO (09:45)
--- NOTE | 2017-10-16 10:12 | Progress Note-Standard ---
Standard Progress Note Progress Notes/Assess & Plan Date Seen by Provider: Oct 16, 2017 Time Seen by Provider: 09:05 Progress/Assessment & Plan pain control much improved. Incisions dry. Ecchymosis of the scrotum and the penis, reassured. Patient has developed urinary retention requiring catheterization. Previous medications prescribed by the urologist will be restarted today. Encouraged ambulation. Transferred to the floor earlier today. able to void spontaneously. Ecchymosis of the scrotum unchanged. INR 1.5. Appetite reasonable. Encouraged ambulation. Could possibly be discharged this evening or tomorrow morning Final Diagnosis ventral hernia. Bilateral inguinal hernia. Gallstones SELVIN MARIN MD Oct 16, 2017 10:12 am
[2017-10-16 12:00] VITALS: BP 143/67
[2017-10-16 14:58] VITALS: BP 143/67
[2017-10-16] MEDS ORDERED: FINASTERIDE (PROSCAR) 5 MG TAB PO SCH (15:15)
== END 2017-10-16 14:58 | disposition home or self-care (01) | DRG 983 ==
LOC: SDC 05:59 → ICU 12:48 → SDC 10-15 16:30 → 4TH 10-15 18:05
PROVIDERS: ADMIT Surgery; ATTEND Surgery
PROC: 0WUF4JZ Supplement Abdominal Wall with Synthetic Substitute, Percutaneous Endoscopic Approach (ICD-10-PCS; 2017-10-14)
PROC: 0FT44ZZ Resection of Gallbladder, Percutaneous Endoscopic Approach (ICD-10-PCS; 2017-10-14)
PROC: 8E0W4CZ Robotic Assisted Procedure of Trunk Region, Percutaneous Endoscopic Approach (ICD-10-PCS; 2017-10-14)
PROC: 8E0Y4CZ Robotic Assisted Procedure of Lower Extremity, Percutaneous Endoscopic Approach (ICD-10-PCS; 2017-10-14)
PROC: 0YUA4JZ Supplement Bilateral Inguinal Region with Synthetic Substitute, Percutaneous Endoscopic Approach (ICD-10-PCS; principal; 2017-10-14 06:51)
DX: N99.89 Other postprocedural complications and disorders of genitourinary system (principal); R33.9 Retention of urine, unspecified; K40.20 Bilateral inguinal hernia, without obstruction or gangrene, not specified as recurrent; K43.9 Ventral hernia without obstruction or gangrene; K80.20 Calculus of gallbladder without cholecystitis without obstruction; I10 Essential (primary) hypertension; I48.2 Chronic atrial fibrillation; I35.0 Nonrheumatic aortic (valve) stenosis; E11.9 Type 2 diabetes mellitus without complications; R01.1 Cardiac murmur, unspecified; E78.5 Hyperlipidemia, unspecified; K21.9 Gastro-esophageal reflux disease without esophagitis; I65.9 Occlusion and stenosis of unspecified precerebral artery; R42 Dizziness and giddiness; Z87.891 Personal history of nicotine dependence; Z90.49 Acquired absence of other specified parts of digestive tract
CPT/HCPCS: 36415; 82962; 85610; 87081; 94664

== ENCOUNTER 2018-04-25 13:02 | Outpatient (RCR) | payer MEDICARE ==
[~2018-04-25 13:02] MED LIST changes: +ACHD5005 PO; -BUP/EPI 0.5% 1:200,000 (SENSORCAINE) 30 ML VIAL ONE; +ESZO3TAB30 PO; +HYDR-3812 PO; +SIMV40TA4 PO
== END 2018-04-28 13:28 | disposition home or self-care (01) ==
PROVIDERS: ATTEND Surgery
DX: R10.84 Generalized abdominal pain (principal)

== ENCOUNTER 2018-06-24 11:16 | Outpatient (RCR) | payer MEDICARE | END 2018-06-24 12:01 | disposition home or self-care (01) | PROVIDERS: ATTEND Surgery | DX: R10.84 Generalized abdominal pain (principal) ==

== ENCOUNTER 2018-12-18 09:40 | Outpatient (RCR) | payer MEDICARE | END 2019-03-18 | disposition home or self-care (01) | LOC: LAB 09:40 → EDSTATUS 09:41 | PROVIDERS: ATTEND Internal Medicine | DX: R19.7 Diarrhea, unspecified (principal) | CPT/HCPCS: 87015; 87045; 87046; 87328; 87329; 87449; 87899; 89055 ==

== ENCOUNTER → 2019-04-07 | Outpatient (CLI) | payer MEDICARE, OTHER | LOC: CARD 10:38 | PROVIDERS: ATTEND Nurse Practitioner Family | DX: I35.0 Nonrheumatic aortic (valve) stenosis (principal); I48.2 Chronic atrial fibrillation; I49.3 Ventricular premature depolarization; I65.29 Occlusion and stenosis of unspecified carotid artery; E78.5 Hyperlipidemia, unspecified | CPT/HCPCS: 93225; 93226; 93306 ==

== ENCOUNTER → 2020-06-30 | Outpatient (CLI) | payer MEDICARE, OTHER ==
[~2020-06-30] MED LIST changes: -HYDR-3812 PO; -MECL-106 PO; +MECL-149 PO; +SIMV40TA25 PO; -SIMV40TA4 PO
--- NOTE | 2020-06-30 11:31 | Diagnostic Imaging Report ---
PROCEDURE: MRI lumbar spine. TECHNIQUE: Multiplanar, multisequence MRI of the lumbar spine was performed without contrast. INDICATION: Left sciatica. COMPARISON: There are no prior MRI examinations available for comparison. FINDINGS: The T2 parasagittal images show fairly severe degenerative disc and bony disease at every level of the lumbar spine except L1-L2. Specifically, there is desiccation and narrowing of the discs at every level as well as bony overgrowth and irregularity of the opposing endplates of L2, L3, L4, L5, and S1. There is also ligamentous hypertrophy. The L4-L5 level appears to be the most severely affected. The thecal sac is compressed and the area of the sac is decreased to 89 mm2 (normal greater than 100 mm2). There is also neuroforaminal narrowing bilaterally at this level. There are similar but not quite as severe changes at L2-L3 and L3-L4. At the L5-S1 level, there is marked narrowing of the disc space and there is a disc bulge centrally. The disc indents the ventral aspect of the thecal sac and narrows the AP diameter to approximately 13.6 mm. There is at least moderate neuroforaminal narrowing bilaterally at this level. There is no evidence for spinal stenosis or nerve root encroachment at L1-L2. There is no abnormal signal arising from the cord or other vertebral bodies to indicate an acute abnormality. There are areas of abnormal signal along the opposing endplates of L3 and L4. I suspect, these are degenerative in nature. There is no sign of a paraspinal mass. IMPRESSION: 1. There is degenerative disc, ligamentous, and bony disease throughout the lumbar spine with spinal stenosis and bilateral neuroforaminal narrowing at L4-L5, L3-L4, and L2-L3. The L4-L5 level is the most severely affected. 2. There is also at least moderate neuroforaminal narrowing bilaterally at L5-S1, although there is no central stenosis at this level. 3. There is no acute bony abnormality identified. Dictated by: Dictated on workstation # [id number]
== END ==
LOC: RAD 09:42
PROVIDERS: ATTEND Orthopaedic Surgery
DX: M51.16 Intervertebral disc disorders with radiculopathy, lumbar region (principal); M48.07 Spinal stenosis, lumbosacral region
CPT/HCPCS: 72148

== ENCOUNTER → 2020-08-18 | Outpatient (CLI) | payer MEDICARE, OTHER | LOC: CARD 12:06 | PROVIDERS: ATTEND Nurse Practitioner Family | DX: I08.0 Rheumatic disorders of both mitral and aortic valves (principal) | CPT/HCPCS: 93306 ==

== ENCOUNTER → 2020-08-19 | Outpatient (CLI) | payer MEDICARE, OTHER ==
[~2020-08-19] VITALS: Ht 177 cm; Wt 75.0 kg
[~2020-08-19] MED LIST changes: +REGADENOSON 0.4 MG/5 ML SYR (LEXISCAN) IV ONE
[2020-08-19] MEDS: CATHETER FLUSH 10 ML SYR IV PRN ×2 (07:44→08:50)
[2020-08-19 08:39] VITALS: BP 182/102
--- NOTE | 2020-08-22 09:26 | STRESS TEST ---
DATE OF SERVICE: 08/19/2020 RESTING AND POST REGADENOSON TECHNETIUM-99M TETROFOSMIN SPECT CT IMAGING ORDERING PHYSICIAN: Oumou Reynolds APRN PRIMARY PHYSICIAN: Dr. Greer. CLINICAL DIAGNOSIS: Shortness of breath. Baseline images were carried out after injection of 10.82 mCi of technetium-99m Tetrofosmin. This was followed by 0.4 mg Regadenoson and 32.2 mCi of technetium-99m Tetrofosmin for stress imaging. The electrocardiogram shows an atrial fibrillation with a controlled ventricular response and did not change significantly with the Regadenoson infusion. The patient tolerated the procedure well. Review of images at rest and following stress does not indicate any significant perfusion defects consistent with myocardial ischemia or infarction. Gated images show normal global left ventricular systolic function with normal regional wall motion. Left ventricular ejection fraction is calculated to be 54%. Left ventricular end diastolic volume is 52 mL. TID is absent (1.06). CONCLUSIONS: 1. No evidence of any significant myocardial ischemia or infarction on this study. 2. Normal regional wall motion. 3. Normal global left ventricular systolic function with a calculated ejection fraction of 54%. Job ID: [id number] DocumentID: [id number] Dictated Date: 08/22/2020 09:14:25 Director Of Radio Services Date: 08/22/2020 09:24:50 Dictated By: NICKI CRISTINA MD, MA, FACP, FACC,
== END ==
LOC: CARD 08:00
PROVIDERS: ATTEND Nurse Practitioner Family
DX: R06.09 Other forms of dyspnea (principal); R06.02 Shortness of breath
CPT/HCPCS: 78452; 93017; A9502

== ENCOUNTER → 2020-10-06 | Outpatient (CLI) | payer MEDICARE, OTHER ==
[~2020-10-06] MED LIST changes: -REGADENOSON 0.4 MG/5 ML SYR (LEXISCAN) IV ONE; +TERA5CAP10 PO; -TERA5CAP3 PO
[2020-10-06 11:29] LABS: BUN/CREATININE RATIO 19; CALCIUM 9.7 MG/DL (8.5-10.1); CARBON DIOXIDE 28 MMOL/L (21-32); CHLORIDE 103 MMOL/L (98-107); CREATININE SERUM 0.86 MG/DL (0.60-1.30); GFR ESTIMATED > 60; GLUCOSE 137 MG/DL (70-105); MAGNESIUM 1.9 MG/DL (1.6-2.4); POTASSIUM 4.3 MMOL/L (3.6-5.0); SODIUM 139 MMOL/L (135-145)
== END ==
LOC: LAB 10:42
PROVIDERS: ATTEND Nurse Practitioner Family
DX: I51.9 Heart disease, unspecified (principal)
CPT/HCPCS: 36415; 80048; 83735

== ENCOUNTER 2020-12-21 13:32 | Emergency (ER) | payer MEDICARE, OTHER ==
[~2020-12-21] VITALS: Ht 177 cm; Wt 78.0 kg
--- NOTE | 2020-12-21 14:10 | ED Fall/Injury ---
General Chief Complaint: Trauma-Non Activation Stated Complaint: FELL-CHEST AREA PAIN Nursing Triage Note: PT AMB TO ROOM 4 PT STATES WAS SITTING ON STOOL TODAY, STOOL BROKE FELL ON BOTTOM, LEANED BACK AND HIT HEAD POST SIDE. STATES IMMEDIATLY STARTED HAVINE STERNAL PAIN RATES PAIN 8/10. NO SOA. Source: patient Exam Limitations: no limitations (AROLDO SIDDIQUI APRN) History of Present Illness Date Seen by Provider: December 21, 2020 Time Seen by Provider: 14:02 Initial Comments This is a well-appearing 85-year-old male presenting to the ER via POV with complaints of fall. States that he was standing on a small step stool when it broke and he fell backwards striking his head on carpeted concrete. Denies loss of consciousness. Reports some neck pain, but states that he has chronic pain. He is currently complaining of pain in his upper abdominal region and lower sternal border. Describes as sharp stabbing pain currently rating 6/10. He denies headache, dizziness, cough, shortness of breath, nausea, vomiting. Denies back pain, numbness, tingling, loss of sensation in bowel or bladder. Denies any pain or discomfort in his hips or lower extremities. States his upper half took the brunt of the fall. He does take Eliquis 5 mg twice daily. Location Injury Occurred: HOME (AROLDO SIDDIQUI APRN) Allergies and Home Medications Allergies Coded Allergies: Sulfa (Sulfonamide Antibiotics) (Unverified Allergy, Intermediate, CONFUSION/WEAKNESS, 10/11/17) Home Medications Atenolol 50 Mg Tablet, 25 MG PO DAILY, (Reported) TAKES 1/2 OF A (50 MG) TABLET Eszopiclone 3 Mg Tablet, 3 MG PO HS PRN for SLEEP, (Reported) Finasteride 5 Mg Tablet, 5 MG PO DAILY, (Reported) Hydrocodone Bit/Acetaminophen 1 Each Tablet, 1-2 TAB PO Q8H PRN for PAIN- MODERATE, (Reported) Hydrocodone Bit/Acetaminophen 1 Tab Tab, 1-2 TAB PO 4-6HR PRN for PAIN Prescribed by: SELVIN MARIN on 10/16/17 0964 Meclizine HCl 25 Mg Tablet, 25 MG PO TID PRN for VERTIGO, (Reported) Methocarbamol 500 Mg Tablet, 500 MG PO Q6H Prescribed by: AROLDO SIDDIQUI on 12/21/20 1808 Simvastatin 40 Mg Tablet, 20 MG PO HS, (Reported) TAKES 1/2 OF A (40 MG) TABLET Terazosin HCl 5 Mg Capsule, 5 MG PO HS, (Reported) Warfarin Sodium 5 Mg Tablet, 5 MG PO DAILY, (Reported) LAST FILLED 07/27/17 #60 Patient Home Medication List Home Medication List Reviewed: Yes (AROLDO SIDDIQUI APRN) Review of Systems Review of Systems Constitutional: no symptoms reported Eyes: No Symptoms Reported Ears, Nose, Mouth, Throat: no symptoms reported Respiratory: no symptoms reported Cardiovascular: see HPI Gastrointestinal: no symptoms reported Genitourinary: no symptoms reported Musculoskeletal: see HPI Skin: no symptoms reported Psychiatric/Neurological: No Symptoms Reported (AROLDO SIDDIQUI APRN) Past Swgirod-Qyaivw-Irayxe Hx Patient Social History Alcohol Use: Denies Use Alcohol Beverage of Choice: Wine Smoking Status: Never a Smoker Type Used: Cigarettes Former Smoker, Quit: Oct 11, 1977 Recent Infectious Disease Expo: No Recent Hopitalizations: No (AROLDO SIDDIQUI APRN) Immunizations Up To Date Tetanus Booster (TDap): Unknown Date of Pneumonia Vaccine: Jul 29, 2015 Date of Influenza Vaccine: May 27, 2017 (AROLDO SIDDIQUI APRN) Seasonal Allergies Seasonal Allergies: No (AROLDO SIDDIQUI APRN) Past Medical History Surgeries: Yes (COLECTOMY, COCCYX) Respiratory: Yes Sleep Apnea Currently Using CPAP: Yes Cardiac: Yes Neurological: No Reproductive Disorders: No Sexually Transmitted Disease: No HIV/AIDS: No Genitourinary: Yes Prostate Problems Gastrointestinal: Yes (HERNIA) Gall Bladder Disease Musculoskeletal: Yes Arthritis Endocrine: Yes (BORDERLINE DIABETIC) HEENT: Yes (GLASSES) Cataract Loss of Vision: Bilateral Hearing Impairment: Bilateral Hearing Aide 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 0.0oz. 81.610220tv; 24.00 BMI Method:Stated General Appearance: WD/WN, no apparent distress HEENT: PERRL/EOMI, normal ENT inspection, pharynx normal, other (small hematoma on posteiror head, no lacerations or bruising appreciated. ) Neck: supple, normal inspection, tender midline Cardiovascular: normal peripheral pulses, no edema, no gallop, irregularly irregular Respiratory: lungs clear, normal breath sounds, no respiratory distress, no accessory muscle use; No plerual rub (Tenderness along lower rib and sternal borders. No crepitus or deformities appreciated. ); other Gastrointestinal: normal bowel sounds, soft; No distended, No mass; other (diffuse tenderness in upper abdomen along lower rib/sternal border. ) Back: normal inspection, no vertebral tenderness Extremities: normal range of motion, non-tender, normal inspection Neurologic/Psychiatric: no motor/sensory deficits, alert, normal mood/affect, oriented x 3 Skin: normal color, warm/dry (AROLDO SIDDIQUI APRN) Dry Prong Coma Score Best Eye Response: (4) Open Spontaneously Best Verbal Response: (5) Oriented Best Motor Response: (6) Obeys Commands Tomas Total: 15 (AROLDO SIDDIQUI APRN) Progress/Results/Core Measures Results/Orders Lab Results Laboratory Tests Test 12/21/20 14:57 12/21/20 17:10 Range/Units Total Creatine Kinase 263 H 30-200 U/L Creatine Kinase MB 8.5 *H <6.6 NG/ML Myoglobin 272.5 H 10.0-92.0 NG/ML Troponin I < 0.028 < 0.028 <0.028 NG/ML Thyroid Stimulating Hormone (TSH) 1.15 0.35-4.94 UIU/ML (WALTER MCKEE MD) Vital Signs/I&O 12/21/20 12/21/20 13:50 18:06 Temp 36.1 Pulse 87 65 Resp 32 24 B/P (MAP) 149/83 (105) 122/64 (105) Pulse Ox 100 100 (WALTER MCKEE MD) Blood Pressure Mean: 105 Progress Progress Note : Progress Note Patient examined and in no acute distress. No focal or gross neurological deficits identified on initial exam. Orders placed for fentanyl for pain management, will obtain CT head C-spine, chest abdomen pelvis due to mechanism of fall and history on Eliquis. Reviewed CT findings and no acute pathology identified. He did have incidental findings of thyroid nodules, went ahead and added TSH to work-up today, which is within normal limits. CT chest showed an area of mass versus consolidation in the medial aspect of the right lower lobe superior segment measuring 2.6 cm. An area of contusion would be an additional consideration. Based on history of fall and c/o pain this is likely a small contusion. Discussed having him follow up with his PCP for further evaluation. Given an additional 25 mcg of fentanyl and Norflex for pain. Reports Norflex appeared to help the most. As he was complaining of chest pain did obtain cardiac markers which were negative in itially, had him stay for 2-hour troponin repeat, which was negative. States he felt much improved and was ready to discharge. Reviewed discharge plan of care including warning signs to watch out for at home. He is agreeable with plan of care and verbalized understanding. (AROLDO SIDDIQUI APRN) Progress Note : Progress Note I was personally present in the emergency department during the care of this patient but did not directly participate in this patient's care. (WALTER MCKEE MD) Initial ECG Impression Date: December 21, 2020 Initial ECG Impression Time: 14:07 Initial ECG Rate: 76 Initial ECG Rhythm: A Fib/Flutter Initial ECG Impression: Atrial Fibrillation (AROLDO SIDDIQUI APRN) Diagnostic Imaging Diagonstic Imaging: CT Plain Films/CT/US/NM/MRI: head Comments [facility], [place] NAME: RONALDO SANCHEZ [facility] REC#: [id number] PT STATUS: REG ER : 1935 PHYSICIAN: AROLDO SIDDIQUI APRN ADMIT DATE: 12/21/20/ER Signed Date of Exam:12/21/20 CT HEAD/CERVICAL SPINE WO PROCEDURE: CT head and CT cervical spine without contrast. TECHNIQUE: Multiple contiguous axial images were obtained through the brain and cervical spine without the use of intravenous contrast. Sagittal and coronal reformations through the cervical spine were then performed. Auto Exposure Controls were utilized during the CT exam to meet ALARA standards for radiation dose reduction. INDICATION: Fall. Hit posterior head. On blood thinners. Scalp contusion. COMPARISON: CT head on 05/15/2017. FINDINGS: CT head: No large acute territorial ischemia, mass or hemorrhage. No midline shift or mass effect. Senescent mineralization is noted in the bilateral basal ganglia. Decreased attenuation is seen in the periventricular and subcortical white matter. The ventricles and cortical sulci are prominent. The basilar cisterns are patent and unremarkable. The calvarium is intact. The visualized paranasal sinuses are clear. CT cervical spine: No acute fracture or dislocation is seen in the cervical spine. No focal osseous lesions. Vertebral body heights are well maintained. There is grade 1 anterolisthesis of C4 on C5. There is generalized osteopenia. The craniocervical junction is well maintained. Moderate degenerative changes are seen in the cervical spine with disc osteophyte complexes and uncovertebral arthropathy. Multinodular thyroid is noted. The largest nodule in the left lobe of the thyroid measures 1.0 cm and contains a punctate calcification. The included lung apices are clear. IMPRESSION: 1. No hemorrhage or focal intra-axial mass. No CT evidence of large acute territorial ischemia. 2. No acute fracture or dislocation in the cervical spine. 3. 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 4. Multinodular thyroid with the largest nodule measuring 1.0 cm in the left lobe of the thyroid. Recommend correlation with TSH values. 5. Generalized osteopenia. Dictated by: Dictated on workstation # [id number] Dict: 12/21/20 1527 Trans: 12/21/20 1536 [facility] [id number] Interpreted by: NITESH ORTIZ DO Electronically signed by: NITESH ORTIZ DO 12/21/20 1536 Reviewed: Reviewed by Ia Diagonstic Imaging: CT Comments [facility], [place] NAME: RONALDO SANCHEZ MED REC#: [id number] PT STATUS: REG ER : 1935 PHYSICIAN: AROLDO SIDDIQUI [employer]PER[employer]OR ADMIT DATE: 12/21/20/ER Signed Date of Exam:12/21/20 CT CHEST/ABDOMEN/PELVIS WO PROCEDURE: CT chest, abdomen, and pelvis without contrast. TECHNIQUE: Multiple contiguous axial images were obtained through the chest, abdomen, and pelvis without the use of intravenous contrast. Auto Exposure Controls were utilized during the CT exam to meet ALARA standards for radiation dose reduction. INDICATION: Fall. FINDINGS: CT CHEST: No definite mediastinal hematoma is seen. No pericardial or pleural fluid is identified. There are coronary arterial calcifications present. There is an area of mass versus consolidation in the medial aspect of the right lower lobe superior segment measuring 2.6 cm. An area of contusion would be an additional consideration. There is no pneumothorax. There are some subpleural interstitial fibrotic changes noted throughout both lungs. The bony structures appear to be intact. No rib fracture or thoracic spine fracture is seen. The sternum appears intact. IMPRESSION: There is an area of consolidation versus mass in the superior segment of the right lower lobe. Close interval followup with repeat CT chest in 2-3 months could be performed to confirm clearing. If this persists, a PET CT study could be performed to evaluate for hypermetabolism. CT ABDOMEN AND PELVIS: The liver and spleen are unremarkable. No perihepatic or perisplenic fluid is identified. The pancreas is unremarkable. No adrenal or renal injury is identified. The aorta and iliac vessels are heavily calcified but nonaneurysmal. The small and large bowel loops are of normal caliber. There is no obstruction. There is moderate stool in the colon. No free fluid or fluid collection is seen. There is no evidence of hemoperitoneum. The bladder is unremarkable. The prostate is unremarkable. The bony structures are nonacute. IMPRESSION: No definite evidence of abdominal or pelvic visceral injury. No acute feature is seen. Dictated by: Dictated on workstation # [id number] Dict: 12/21/20 1528 Trans: 12/21/20 1545 [id number] Interpreted by: MUKUND GLASER MD Electronically signed by: MUKUND GLASER MD 12/21/20 1545 Reviewed: Reviewed by Me (AROLDO SIDDIQUI [employer] SUPERVISOR) Departure Impression Primary Impression: Fall from stool Disposition: 01 HOME, SELF-CARE Condition: Improved Departure-Patient Inst. Decision time for Depature: 17:59 (AROLDO SIDDIQUI APRN) Referrals: TIFF LANCE DO (PCP/Family) Primary Care Physician Patient Instructions: CHEST CONTUSION Add. Discharge Instructions: Plan: 1. Rest. Avoid bending, lifting, twisting/pulling at home. 2. Use ice/heat 20 minutes at a time 4-6x per day. 3. Take methocarbamol 500mg by mouth every 6 hours as needed for severe pain. May take with Tylenol per package. 4. Return to ER if you have any severe headache, difficulty waking, changes in vision, vomiting more than 2 times in 12 hours. 5. Return to ER for any new, concerning, or worsening symptoms. All discharge instructions reviewed with patient and/or family. Voiced understanding. Scripts Methocarbamol (Methocarbamol) 500 Mg Tablet 500 MG PO Q6H for Back Pain, #20 TAB 0 Refills Prov: AROLDO SIDDIQUI APRN 12/21/20 Copy Copies To 1: TIFF LANCE STORMY D APRN December 21, 2020 14:10 WALTER MCKEE MD December 23, 2020 06:34
[2020-12-21] MEDS ORDERED: fentaNYL INJ 100 MCG/2 ML AMP ONE (14:35)
[2020-12-21] MEDS: fentaNYL INJ 100 MCG/2 ML AMP IM PRN ×2 (15:00→16:13)
[2020-12-21 15:30] LABS: CREATINE KINASE 263 U/L (30-200)
--- NOTE | 2020-12-21 15:36 | Diagnostic Imaging Report ---
PROCEDURE: CT head and CT cervical spine without contrast. TECHNIQUE: Multiple contiguous axial images were obtained through the brain and cervical spine without the use of intravenous contrast. Sagittal and coronal reformations through the cervical spine were then performed. Auto Exposure Controls were utilized during the CT exam to meet ALARA standards for radiation dose reduction. INDICATION: Fall. Hit posterior head. On blood thinners. Scalp contusion. COMPARISON: CT head on 05/15/2017. FINDINGS: CT head: No large acute territorial ischemia, mass or hemorrhage. No midline shift or mass effect. Senescent mineralization is noted in the bilateral basal ganglia. Decreased attenuation is seen in the periventricular and subcortical white matter. The ventricles and cortical sulci are prominent. The basilar cisterns are patent and unremarkable. The calvarium is intact. The visualized paranasal sinuses are clear. CT cervical spine: No acute fracture or dislocation is seen in the cervical spine. No focal osseous lesions. Vertebral body heights are well maintained. There is grade 1 anterolisthesis of C4 on C5. There is generalized osteopenia. The craniocervical junction is well maintained. Moderate degenerative changes are seen in the cervical spine with disc osteophyte complexes and uncovertebral arthropathy. Multinodular thyroid is noted. The largest nodule in the left lobe of the thyroid measures 1.0 cm and contains a punctate calcification. The included lung apices are clear. IMPRESSION: 1. No hemorrhage or focal intra-axial mass. No CT evidence of large acute territorial ischemia. 2. No acute fracture or dislocation in the cervical spine. 3. 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 4. Multinodular thyroid with the largest nodule measuring 1.0 cm in the left lobe of the thyroid. Recommend correlation with TSH values. 5. Generalized osteopenia. Dictated by: Dictated on workstation # [id number]
[2020-12-21 15:37] LABS: CREATINE KINASE MB 8.5 NG/ML (<6.6)
--- NOTE | 2020-12-21 15:43 | Diagnostic Imaging Report ---
PROCEDURE: CT chest, abdomen, and pelvis without contrast. TECHNIQUE: Multiple contiguous axial images were obtained through the chest, abdomen, and pelvis without the use of intravenous contrast. Auto Exposure Controls were utilized during the CT exam to meet ALARA standards for radiation dose reduction. INDICATION: Fall. FINDINGS: CT CHEST: No definite mediastinal hematoma is seen. No pericardial or pleural fluid is identified. There are coronary arterial calcifications present. There is an area of mass versus consolidation in the medial aspect of the right lower lobe superior segment measuring 2.6 cm. An area of contusion would be an additional consideration. There is no pneumothorax. There are some subpleural interstitial fibrotic changes noted throughout both lungs. The bony structures appear to be intact. No rib fracture or thoracic spine fracture is seen. The sternum appears intact. IMPRESSION: There is an area of consolidation versus mass in the superior segment of the right lower lobe. Close interval followup with repeat CT chest in 2-3 months could be performed to confirm clearing. If this persists, a PET CT study could be performed to evaluate for hypermetabolism. CT ABDOMEN AND PELVIS: The liver and spleen are unremarkable. No perihepatic or perisplenic fluid is identified. The pancreas is unremarkable. No adrenal or renal injury is identified. The aorta and iliac vessels are heavily calcified but nonaneurysmal. The small and large bowel loops are of normal caliber. There is no obstruction. There is moderate stool in the colon. No free fluid or fluid collection is seen. There is no evidence of hemoperitoneum. The bladder is unremarkable. The prostate is unremarkable. The bony structures are nonacute. IMPRESSION: No definite evidence of abdominal or pelvic visceral injury. No acute feature is seen. Dictated by: Dictated on workstation # [id number]
[2020-12-21] MEDS ORDERED: NS IV 1000 ML 1,000 ML IV ONE (16:00)
[2020-12-21] MEDS ORDERED: fentaNYL INJ 100 MCG/2 ML AMP IVP ONE (16:15)
[2020-12-21] MEDS ORDERED: ORPHENADRINE 60 MG/2 ML (NORFLEX) AMP (ED ONLY) IM ONE (17:00)
[2020-12-21] MEDS ORDERED: METH-731 PO ×2 (18:04→18:08)
[2020-12-21 18:06] VITALS: BP 122/64
== END 2020-12-21 18:14 | disposition home or self-care (01) ==
LOC: EDUNIT# 13:32 → ER 13:34
DX: S00.03XA Contusion of scalp, initial encounter (principal); R07.81 Pleurodynia; R10.10 Upper abdominal pain, unspecified; G47.30 Sleep apnea, unspecified; G89.29 Other chronic pain; M54.2 Cervicalgia; Z79.891 Long term (current) use of opiate analgesic; Z99.89 Dependence on other enabling machines and devices; Z87.891 Personal history of nicotine dependence; W08.XXXA Fall from other furniture, initial encounter; W22.8XXA Striking against or struck by other objects, initial encounter; Y92.009 Unspecified place in unspecified non-institutional (private) residence as the place of occurrence of the external cause
CPT/HCPCS: 36415; 70450; 71250; 72125; 74176; 82550; 82553; 83874; 84443; 84484; 93005

== ENCOUNTER → 2021-02-17 | Outpatient (CLI) | payer MEDICARE, OTHER ==
[~2021-02-17] MED LIST changes: +CATHETER FLUSH 10 ML SYR IV PRN; +HOLD METFORMIN - RECEIVED CONTRAST 20 ML VIAL IV SCH; +IOHEXOL 350 MG/ML 100 ML (OMNIPAQUE 350) VIAL IV ONE; +METH-731 PO; +NS 100 ML (IVPB) BAG IV ONE
--- NOTE | 2021-02-17 11:17 | Diagnostic Imaging Report ---
PROCEDURE: CT chest with contrast only. TECHNIQUE: Multiple contiguous axial images were obtained through the chest after administration of intravenous contrast. Auto Exposure Controls were utilized during the CT exam to meet ALARA standards for radiation dose reduction. INDICATION: Right upper lobe pulmonary nodule, exertional shortness of breath with sleep apnea, on CPAP. Compared with CT chest performed 12/21/2020. FINDINGS: There is a persistent same when measured along the same axis. If this were merely on the basis of pneumonia substantial improvements and not resolution would have been anticipated therefore malignancy cannot be excluded and consideration for CT-guided biopsy is suggested. No new focal pulmonary parenchymal abnormality is found and there is some chronic air trapping and features of COPD stable. The atherosclerotic aorta is nonaneurysmal. There is no central pulmonary arterial embolus. A few left mediastinal and hilar lymph nodes showed no change. A subcarinal node measured 2.2 x 1.2 cm. No convincing pathological thoracic lymph nodes. No pleural or pericardial effusion. Upper limits heart size stable. The visualized upper abdomen shows a low-density nodule right adrenal isthmus stable favored to be adenomatous. No suspicious upper abdominal mass. IMPRESSION: 1. Persistent irregular lesion right lower lobe medially superior segment, malignancy cannot be excluded. 2. Background changes of COPD, a few borderline thoracic lymph nodes stable. No convincing pathological lymph nodes. 3. Stable cardiomegaly and nonaneurysmal atherosclerosis, unchanged benign-appearing right adrenal nodule. Irregular parenchymal opacity superior segment right lower lobe medially, it has few peripheral lucent foci which may be bronchograms or gaseous cavitation. Its borders are irregular and it has a soft tissue as well as airspaced composition and measures approximately 2.8 x 2.6 cm today, previously Dictated by: Dictated on workstation # [id number]
== END ==
LOC: RAD 09:45
PROVIDERS: ATTEND Internal Medicine
DX: J44.9 Chronic obstructive pulmonary disease, unspecified (principal); R91.8 Other nonspecific abnormal finding of lung field; I51.7 Cardiomegaly; I70.90 Unspecified atherosclerosis; G47.30 Sleep apnea, unspecified
CPT/HCPCS: 71260

== ENCOUNTER 2021-07-17 19:03 | Emergency (ER) | payer MEDICARE, OTHER ==
[~2021-07-17] VITALS: Ht 180 cm; Wt 74.5 kg
[~2021-07-17 19:03] MED LIST changes: -CATHETER FLUSH 10 ML SYR IV PRN; -HOLD METFORMIN - RECEIVED CONTRAST 20 ML VIAL IV SCH; -IOHEXOL 350 MG/ML 100 ML (OMNIPAQUE 350) VIAL IV ONE; -NS 100 ML (IVPB) BAG IV ONE
[2021-07-17] MEDS ORDERED: TETANUS,DIPTH,PERTUSS P/F (BOOSTRIX) 0.5 ML VIAL IM ONE (19:30)
--- NOTE | 2021-07-17 19:30 | ED Fall/Injury ---
General Chief Complaint: Trauma-Non Activation Stated Complaint: FALL/HEAD LAC/ON BLOOD THINNERS Nursing Triage Note: pt presents to ED with gash above right eye after tripping and falling onto concrete. pt came to ED by POV and ambulated to room 3. denies BUSCH, dizziness, blurred vision, etc. pt is on eliquis. at bedside. Source: patient History of Present Illness Date Seen by Provider: Jul 17, 2021 Time Seen by Provider: 19:14 Initial Comments PT ARRIVES VIA POV WITH PT AND WERE AT [employer] [facility], AND HE TRIPPED AND/OR LOST BALANCE AND FELL ONTO CONCRETE--HITTING HIS RIGHT FOREHEAD AREA ON CONCRETE--BROKE HIS GLASSES OCCURRED JUST PRIOR TO ARRIVAL NO LOSS OF CONSCIOUSNESS NO CHANGE IN MENTATION NO HEADACHE NO DIZZINESS NO VISION CHANGES NO NAUSEA/VOMITING NO NECK PAIN NO PARESTHESIAS OR MOTOR DEFICITS NO OTHER INJURIES OR AREAS OF PAIN HAS LACERATION ABOVE RIGHT BROW, AND ABRASION LATERAL TO RIGHT EYE. NO ACTIVE BLEEDING PT IS ON ELIQUIS FOR CHRONIC ATRIAL FIBRILLATION PT STATES HE IS ALWAYS UNSTEADY ON HIS FEET, BUT DOES NOT USE A CANE OR WALKER PT HAS CHRONIC LOWER BACK PAIN AND WEARS A LUMBAR SUPPORT BELT, STATES HIS LOWER BACK DOES NOT HURT ANYMORE THAN NORMAL LAST TETANUS IS UNKNOWN STATES HE IS UNSTEADY ON HIS FEET AND DOES FALL OCCASIONALLY STATES THEY HAVE 2 WALKERS AT HOME "IN THE [place]" --BUT OBVIOUSLY NEVER USES THEM, NOR A CANE PCP: DR. LANCE NUCLEAR PHARMACIST: DR. CRISTINA Allergies and Home Medications Allergies Coded Allergies: Sulfa (Sulfonamide Antibiotics) (Unverified Allergy, Intermediate, CONF USION/WEAKNESS, 10/11/17) Patient Home Medication List Home Medication List Reviewed: Yes Atenolol (Atenolol) 50 Mg Tablet, 25 MG PO DAILY, (Reported) Entered as Reported by: KARRI WELLS on 10/14/17 162 Cephalexin (Cephalexin) 500 Mg Tablet, 500 MG PO QID Prescribed by: VIKA CHRISTINA on 07/17/212049 Eszopiclone (Lunesta) 3 Mg Tablet, 3 MG PO HS PRN for SLEEP, (Reported) Entered as Reported by: KARRI WELLS on 10/14/17 162 Finasteride (Finasteride) 5 Mg Tablet, 5 MG PO DAILY, (Reported) Entered as Reported by: CHRISTI MAZARIEGOS on 03/04/15 0859 Hydrocodone Bit/Acetaminophen (Lortab 5 Mg Tablet) 1 Each Tablet, 1-2 TAB PO Q8H PRN for PAIN-MODERATE, (Reported) Entered as Reported by: KARRI WELLS on 10/14/17 1622 Hydrocodone Bit/Acetaminophen (Lortab 5 Mg Tablet) 1 Tab Tab, 1-2 TAB PO 4-6HR PRN for PAIN Prescribed by: SELVIN MARIN on 10/16/17 0945 Meclizine HCl (Meclizine HCl) 25 Mg Tablet, 25 MG PO TID PRN for VERTIGO, (Reported) Entered as Reported by: CHRISTI MAZARIEGOS on 10/11/17 1102 Methocarbamol (Methocarbamol) 500 Mg Tablet, 500 MG PO Q6H Prescribed by: AROLDO SIDDIQUI on 12/21/20 1808 Simvastatin (Simvastatin) 40 Mg Tablet, 20 MG PO HS, (Reported) Entered as Reported by: KARRI WELLS on 10/14/17 1622 Terazosin HCl (Terazosin HCl) 5 Mg Capsule, 5 MG PO HS, (Reported) Entered as Reported by: CHRISTI MAZARIEGOS on 03/04/15 0859 Warfarin Sodium (Warfarin Sodium) 5 Mg Tablet, 5 MG PO DAILY, (Reported) Entered as Reported by: CHRISTI MAZARIEGOS on 10/11/17 1102 Review of Systems Review of Systems Constitutional: no symptoms reported Eyes: No Symptoms Reported Ears, Nose, Mouth, Throat: no symptoms reported Respiratory: no symptoms reported Cardiovascular: no symptoms reported Gastrointestinal: no symptoms reported Genitourinary: no symptoms reported Musculoskeletal: see HPI Skin: see HPI Psychiatric/Neurological: No Symptoms Reported; Denies Headache, Denies Numbness, Denies Paresthesia, Denies Seizure, Denies Tingling, Denies Weakness Past Enxapix-Dibtug-Mycsow Hx Patient Social History Tobacco Use?: No Substance use?: No Alcohol Use?: No Immunizations Up To Date Tetanus Booster (TDap): Unknown Seasonal Allergies Seasonal Allergies: No Past Medical History Surgeries: Yes (COLECTOMY, COCCYX) Abdominal, Appendectomy, Bowel Surgery Respiratory: Yes Sleep Apnea Currently Using CPAP: Yes Cardiac: Yes Atrial Fibrillation, Chronic Edema/Swelling, High Cholesterol, Hypertension Neurological: No Reproductive Disorders: No Sexually Transmitted Disease: No HIV/AIDS: No Genitourinary: Yes Prostate Problems Gastrointestinal: Yes (HERNIA; COLON CANCER) Abdominal Hernia, Polyps, Gall Bladder Disease Musculoskeletal: Yes Arthritis Endocrine: Yes (BORDERLINE DIABETIC) HEENT: Yes (GLASSES) Cataract Loss of Vision: Bilateral Hearing Impairment: Bilateral Hearing Aide 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, Colon Did You Recieve Any Treatments: Yes What Type of Treatment Did You: Surgical Intervention Psychosocial: Yes Anxiety Integumentary: No Blood Disorders: No Adverse Reaction/Blood Tranf: No (N/A) Family Medical History PAST SURGICAL HISTORY: -HERNIA REPAIR X 3 -APPENDECTOMY -COLON RESECTION FOR CANCER -COLONOSCOPIES -SURGERY TO REMOVE SKIN CANCER Physical Exam Vital Signs Vital Signs - First Documented 07/17/21 19:10 Temp 36.1 Pulse 103 Resp 18 B/P (MAP) 148/83 (104) Pulse Ox 98 O2 Delivery Room Air Capillary Refill : Less Than 3 Seconds Height, Weight, BMI Height: 5'10.00" Weight: 179lbs. 0.0oz. 81.709943py; 22.00 BMI Method:Stated General Appearance: WD/WN, no apparent distress, thin HEENT: PERRL/EOMI, normal ENT inspection, TMs normal, pharynx normal, other (HAS IRREGULAR FULL THICKNESS LACERATION ABOVE RIGHT BROW, HAS SMALLER SUPERFICIAL LACERATION/ABRASION LATERAL TO RIGHT EYE. SLIGHT SWELLING AND EARLY BRUISING TO RIGHT BROW. ) Neck: non-tender, other Cardiovascular: no murmur, irregularly irregular Respiratory: chest non-tender, normal breath sounds, no respiratory distress, no accessory muscle use Gastrointestinal: non tender, soft Back: no CVA tenderness, no vertebral tenderness Extremities: normal range of motion, non-tender, normal inspection, normal capillary refill, swelling (TRACE EDEMA TO BILATERAL LOWER LEGS) Neurologic/Psychiatric: continuous miner II-XII nml as tested, no motor/sensory deficits, alert, normal mood/affect, oriented x 3 Skin: normal color, warm/dry, other (WOUNDS NOTED ABOVE) Mercer Coma Score Best Eye Response: (4) Open Spontaneously Best Verbal Response: (5) Oriented Best Motor Response: (6) Obeys Commands Tomas Total: 15 Procedures/Interventions Wound Location: Face Other Wound Location ABOVE RIGHT BROW Wound Length (cm): 4 Wound's Depth, Shape: irregular, stellate, sub Q Wound Explored: clean Anesthesia: Lidocaine w/ Epi (2%) Suture: Ethlion Suture Size: 5-0 Number of Sutures: 5 Layer Closure?: 1 Sterile Dressing Applied?: Yes Progress/Results/Core Measures Results/Orders Lab Results Laboratory Tests Test 07/17/21 19:50 Range/Units White Blood Count 7.8 4.3-11.0 10^3/uL Red Blood Count 4.14 L 4.30-5.52 10^6/uL Hemoglobin 13.1 L 13.3-17.7 g/dL Hematocrit 40 40-54 % Mean Corpuscular Volume 96 80-99 fL Mean Corpuscular Hemoglobin 32 25-34 pg Mean Corpuscular Hemoglobin Concent 33 32-36 g/dL Red Cell Distribution Width 13.3 10.0-14.5 % Platelet Count 220 130-400 10^3/uL Mean Platelet Volume 9.3 9.0-12.2 fL Prothrombin Time 17.4 H 12.2-14.7 SEC INR Comment 1.4 0.8-1.4 Activated Partial Thromboplast Time 33 24-35 SEC Sodium Level 138 135-145 MMOL/L Potassium Level 4.3 3.6-5.0 MMOL/L Chloride Level 103 98-107 MMOL/L Carbon Dioxide Level 22 21-32 MMOL/L Anion Gap 13 5-14 MMOL/L Blood Urea Nitrogen 26 H 7-18 MG/DL Creatinine 1.03 0.60-1.30 MG/DL Estimat Glomerular Filtration Rate 68 BUN/Creatinine Ratio 25 Glucose Level 161 H 70-105 MG/DL Calcium Level 10.0 8.5-10.1 MG/DL My Orders Orders - VIKA CHRISTINA DO Ct Head/Face/Cervical Wo (07/17/21 19:16) Monitor-Rhythm Ecg Trace Only (07/17/21 19:16) Basic Metabolic Panel (07/17/21 19:16) Cbc No Diff (07/17/21 19:16) Protime With Inr (07/17/21 19:16) Partial Thromboplastin Time (07/17/21 19:16) Dipht,Pertuss(Acell),Tet Adult (Boostrix (07/17/21 19:30) Cervical Collar (07/17/21 19:16) Lidocaine/Epi 2% 1:100,000 (Xylocaine/Ep (07/17/21 20:18) Rx-Cephalexin Capsule (Rx-Keflex Capsule (07/17/21 20:46) Wound Dressing-Ed (07/17/21 20:46) Tetanus/Diphtheria Inj (Adult) (Tenivac (07/17/21 21:39) Medications Given in ED Current Medications Medications Dose Ordered Sig/Hattie Route Start Time Stop Time Status Last Admin Dose Admin Diphtheria/ Tetanus/Acell Pertussis 0.5 ml ONCE ONCE IM 07/17/21 19:30 07/17/21 19:31 DC 07/17/21 21:00 0.5 ML Lidocaine/ Epinephrine 20 ml STK-MED ONCE .ROUTE 07/17/21 20:18 07/17/21 20:21 DC 07/17/21 20:30 20 ML Vital Signs/I&O 07/17/21 07/17/21 19:10 21:35 Temp 36.1 Pulse 103 83 Resp 18 16 B/P (MAP) 148/83 (104) 114/70 Pulse Ox 98 97 O2 Delivery Room Air Room Air Blood Pressure Mean: 104 Progress Progress Note : Progress Note CERVICAL COLLAR PLACED ON ARRIVAL LATER REMOVED AFTER RECEIVING CT OF CERVICAL SPINE REPORT FROM RADIOLOGIST SHOWING NO ACUTE PROCESS, AND PT DOES NOT HAVE ANY NECK PAIN AND NECK IS NON- TENDER UNEVENTFUL ER STAY DISCUSSED THE IMPORTANCE OF USING A WALKER AT ALL TIMES, HE HAS A HISTORY OF FALLS, AND ADMITS TO UNSTEADY GAIT--ESPECIALLY BECAUSE HE IS ON A BLOOD THINNER. Diagnostic Imaging Comments CT HEAD/MAXILLOFACIALS/CERVICAL SPINE--PER RADIOLOGIST REPORT AT 2016 FINDINGS: There is prominence of the ventricles and sulci. There is mild chronic microvascular ischemic disease. There is mild right frontal soft tissue swelling. There is a right frontal scalp laceration. The calvarium is intact. The sinuses and mastoid air cells are clear. The nasal bone is intact. The zygomatic arches are intact. The lamina papyracea and orbital floors are intact. Ostiomeatal complexes are widely patent. The mandibular alignment is normal. There are no mandibular fractures. The alignment of the cervical spine is normal. The vertebral body heights are well-maintained. There is diffuse cervical spondylosis and multilevel degenerative disc disease. The prevertebral soft tissues are within normal limits. There is no fracture or traumatic subluxation. There is moderate posterior facet arthropathy. IMPRESSION: 1. Atrophy and some chronic microvascular ischemic disease, however, no acute intracranial abnormality. 2. Moderate cervical spondylosis and multilevel degenerative disc disease without acute fracture or traumatic subluxation. 3. Right frontal scalp hematoma and laceration. 4. No displaced facial fractures. Reviewed: Reviewed by Me Departure Impression Primary Impression: Fall from standing Additional Impressions: Minor head injury without loss of consciousness Forehead laceration Vqqyplvvas-pogfqacns-nnjyiae (DPT) vaccination administered at current visit ANTICOAGULATION THERAPY Disposition: HOME, SELF-CARE Condition: Stable Departure-Patient Inst. Decision time for Depature: 20:48 Referrals: TIFF LANCE DO (PCP/Family) Primary Care Physician Patient Instructions: Concussion, Adult (DC), Diphtheria and Tetanus Toxoids, and Acellular Pertussis Vaccine, Laceration Repair, Laceration Repair With Stitches ED, Preventing Falls in the Older Adult Add. Discharge Instructions: HOME, REST TYLENOL NEEDED FOR PAIN ICE TO AREA AT 20 MINUTE INTERVALS CONTINUE YOUR REGULAR MEDICATIONS PRESCRIBED CLEAN WOUND TWICE A DAY WITH ANTIBACTERIAL SOAP AND WATER ON A Q-TIP, OTHERWISE KEEP CLEAN AND DRY USE YOUR WALKER AT ALL TIMES FOLLOW UP WITH DR. LANCE IN 2-3 DAYS FOR RECHECK SUTURES OUT IN 5-7 DAYS RETURN TO ER IF PROBLEMS All discharge instructions reviewed with patient and/or family. Voiced understanding. Scripts Cephalexin (Cephalexin) 500 Mg Tablet 500 MG PO QID, #20 TAB 0 Refills Prov: VIKA CHRISTINA DO 07/17/21 VIKA CHRISTINA DO Jul 17, 2021 19:30
[2021-07-17 19:57] LABS: HEMATOCRIT 40 % (40-54); HEMOGLOBIN 13.1 g/dL (13.3-17.7); MEAN CORPUSCULAR HEMOGLOBIN 32 pg (25-34); MEAN CORPUSCULAR HGB CONC 33 g/dL (32-36); MEAN CORPUSCULAR VOLUME 96 fL (80-99); MEAN PLATELET VOLUME 9.3 fL (9.0-12.2); PLATELET COUNT 220 10^3/uL (130-400); WHITE BLOOD COUNT 7.8 10^3/uL (4.3-11.0)
--- NOTE | 2021-07-17 20:10 | Diagnostic Imaging Report ---
PROCEDURE: CT head, face, and cervical spine without contrast. TECHNIQUE: Multiple contiguous axial images were obtained through the head, neck, and facial bones without the use of intravenous contrast. Sagittal and coronal reformations through the cervical spine and facial bones were also performed. Auto Exposure Controls were utilized during the CT exam to meet ALARA standards for radiation dose reduction. INDICATION: Trauma. FINDINGS: There is prominence of the ventricles and sulci. There is mild chronic microvascular ischemic disease. There is mild right frontal soft tissue swelling. There is a right frontal scalp laceration. The calvarium is intact. The sinuses and mastoid air cells are clear. The nasal bone is intact. The zygomatic arches are intact. The lamina papyracea and orbital floors are intact. Ostiomeatal complexes are widely patent. The mandibular alignment is normal. There are no mandibular fractures. The alignment of the cervical spine is normal. The vertebral body heights are well-maintained. There is diffuse cervical spondylosis and multilevel degenerative disc disease. The prevertebral soft tissues are within normal limits. There is no fracture or traumatic subluxation. There is moderate posterior facet arthropathy. IMPRESSION: 1. Atrophy and some chronic microvascular ischemic disease, however, no acute intracranial abnormality. 2. Moderate cervical spondylosis and multilevel degenerative disc disease without acute fracture or traumatic subluxation. 3. Right frontal scalp hematoma and laceration. 4. No displaced facial fractures. Dictated by: Dictated on workstation # [id number]
[2021-07-17 20:12] LABS: INR 1.4 (0.8-1.4); PROTHROMBIN TIME PATIENT 17.4 SEC (12.2-14.7)
[2021-07-17 20:17] LABS: CREATININE SERUM 1.03 MG/DL (0.60-1.30); POTASSIUM 4.3 MMOL/L (3.6-5.0)
[2021-07-17] MEDS ORDERED: LIDOCAINE/EPI 2% 1:100,00 (XYLOCAINE) 20 ML VIAL ONE (20:18)
[2021-07-17] MEDS ORDERED: RX-CEPHALEXIN (KEFLEX) 250 MG CAP PPK#4 PO STA (20:46)
[2021-07-17] MEDS ORDERED: CEPH500T PO (20:50)
[2021-07-17 21:35] VITALS: BP 114/70
[2021-07-17] MEDS ORDERED: TETANUS & DIPHTHERIA TOX,ADULT 0.5 ML (TENIVAC) IM ONE (21:39)
== END 2021-07-17 21:30 | disposition home or self-care (01) ==
LOC: EDUNIT# 19:03 → ER 19:04
DX: S01.81XA Laceration without foreign body of other part of head, initial encounter (principal); S09.90XA Unspecified injury of head, initial encounter; G47.30 Sleep apnea, unspecified; I10 Essential (primary) hypertension; I48.91 Unspecified atrial fibrillation; E78.00 Pure hypercholesterolemia, unspecified; R40.2410 Glasgow coma scale score 13-15, unspecified time; Z23 Encounter for immunization; Z79.01 Long term (current) use of anticoagulants; Z79.899 Other long term (current) drug therapy; W01.198A Fall on same level from slipping, tripping and stumbling with subsequent striking against other object, initial encounter
CPT/HCPCS: 36415; 70450; 70486; 72125; 80048; 85027; 85610; 85730; 90715; 93041

== ENCOUNTER 2022-06-08 18:10 | Emergency (ER) | payer MEDICARE, OTHER ==
[~2022-06-08] VITALS: Ht 180.3 cm; Wt 74.3 kg
[~2022-06-08 18:10] MED LIST changes: +CEPH500T PO; +SIMV-333 PO; -SIMV20TA PO
--- NOTE | 2022-06-08 18:40 | ED Fall/Injury ---
General Chief Complaint: Trauma-Non Activation Stated Complaint: FALL/NOSE/FOREHEAD/HAND LAC Nursing Triage Note: FALL Source: patient History of Present Illness Date Seen by Provider: Jun 08, 2022 Time Seen by Provider: 18:25 Initial Comments PT ARRIVES VIA POV WITH FAMILY MEMBER PT WAS WALKING INTO [employer] AND FELL FORWARD, LANDING ON HIS FACE IS NOT SURE WHAT CAUSED THE FALL--THINKS HE "MIGHT HAVE GOTTEN TANGLED UP IN HIS CANE" IT DID BREAK HIS GLASSES VISION IS GROSSLY NORMAL FOR HIM, WITHOUT GLASSES HAS ABRASIONS TO FOREHEAD, BRIDGE OF NOSE AND BELOW NOSE. THERE IS NO EPISTAXIS. NO MOUTH OR INTRA-ORAL INJURY NO LOSS OF CONSCIOUSNESS NO DIZZINESS NO HEADACHE HAS SOME NECK PAIN --CERVICAL COLLAR PLACED ON ARRIVAL NO PARESTHESIAS OR MOTOR DEFICITS HAS ABRASION TO LEFT KNEE, BUT DENIES KNEE PAIN. STATES HE GOT AN INJECTION IN HIS RIGHT KNEE THIS WEEK BY DR. ADAM FOR ARTHRITIS. NO PAIN TO RIGHT KNEE AT THIS TIME. DENIES HIP PAIN DENIES ANY NEW/WORSENING OF CHRONIC GENERALIZED BACK PAIN NO LOSS OF BOWEL OR BLADDER CONTROL. HAS WOUND TO RIGHT PALM/ BASE OF 5TH FINGER. DENIES ANY SIGNIFICANT PAIN TO THIS AREA. NO PAIN TO ARMS, OTHER THAN CHRONIC SHOULDER PAIN, WHICH IS NO WORSE THAN NORMAL NO CHEST PAIN OR ABDOMINAL PAIN NO NAUSEA/VOMITING PT IS ON ELIQUIS FOR ATRIAL FIBRILLATION. PT CURRENTLY BEING MONITORED FOR A LUNG NODULE. HAS HAD 2 LUNG BIOPSIES WHICH WERE INCONCLUSIVE AND IS SCHEDULED TO HAVE A PET SCAN. HAS HISTORY OF COLON CANCER-S/P SURGERY PT IS UP TO DATE ON TETANUS VACCINE 07/17/21 PCP: DR. LANCE Allergies and Home Medications Allergies Coded Allergies: Sulfa (Sulfonamide Antibiotics) (Unverified Allergy, Intermediate, CONF USION/WEAKNESS, 10/11/17) Patient Home Medication List Atenolol (Atenolol) 50 Mg Tablet, 25 MG PO DAILY, (Reported) Entered as Reported by: KARRI WELLS on 10/14/171621 Cephalexin (Cephalexin) 500 Mg Tablet, 500 MG PO QID Prescribed by: VIKA CHRISTINA on 07/17/212049 Eszopiclone (Lunesta) 3 Mg Tablet, 3 MG PO HS PRN for SLEEP, (Reported) Entered as Reported by: KARRI WELLS on 3/19/18 1622 Finasteride (Finasteride) 5 Mg Tablet, 5 MG PO DAILY, (Reported) Entered as Reported by: CHRISTI MAZARIEGOS on 03/04/15 0859 Hydrocodone Bit/Acetaminophen (Lortab 5 Mg Tablet) 1 Each Tablet, 1-2 TAB PO Q8H PRN for PAIN-MODERATE, (Reported) Entered as Reported by: KARRI WELLS on 10/14/17 1622 Hydrocodone Bit/Acetaminophen (Lortab 5 Mg Tablet) 1 Tab Tab, 1-2 TAB PO 4-6HR PRN for PAIN Prescribed by: SELVIN MARIN on 10/16/17 0945 Meclizine HCl (Meclizine HCl) 25 Mg Tablet, 25 MG PO TID PRN for VERTIGO, (Reported) Entered as Reported by: CHRISTI MAZARIEGOS on 10/11/17 1102 Methocarbamol (Methocarbamol) 500 Mg Tablet, 500 MG PO Q6H Prescribed by: AROLDO SIDDIQUI on 12/21/20 1808 Simvastatin (Simvastatin) 40 Mg Tablet, 20 MG PO HS, (Reported) Entered as Reported by: KARRI WELLS on 10/14/17 1622 Terazosin HCl (Terazosin HCl) 5 Mg Capsule, 5 MG PO HS, (Reported) Entered as Reported by: CHRISTI MAZARIEGOS on 03/04/15 0859 Warfarin Sodium (Warfarin Sodium) 5 Mg Tablet, 5 MG PO DAILY, (Reported) Entered as Reported by: CHRISTI MAZARIEGOS on 10/11/17 1102 Review of Systems Review of Systems Constitutional: no symptoms reported Eyes: No Symptoms Reported Ears, Nose, Mouth, Throat: see HPI Respiratory: no symptoms reported Cardiovascular: no symptoms reported Gastrointestinal: no symptoms reported Genitourinary: no symptoms reported Musculoskeletal: see HPI Skin: see HPI Psychiatric/Neurological: No Symptoms Reported; Denies Headache, Denies Numbness, Denies Paresthesia, Denies Seizure, Denies Tingling, Denies Weakness Past Xdcqgrn-Qstxkg-Nmqjnu Hx Patient Social History Tobacco Use?: No Use of E-Cig and/or Vaping dev: No Substance use?: No Alcohol Use?: No Pt feels they are or have been: No Immunizations Up To Date Tetanus Booster (TDap): Less than 5yrs (07/17/21) Seasonal Allergies Seasonal Allergies: No Past Medical History Surgeries: Yes (COLECTOMY, COCCYX) Abdominal, Appendectomy, Bowel Surgery, Orthopedic Respiratory: Yes Sleep Apnea Currently Using CPAP: Yes Cardiac: Yes Atrial Fibrillation, Chronic Edema/Swelling, High Cholesterol, Hypertension Neurological: No Reproductive Disorders: No Sexually Transmitted Disease: No HIV/AIDS: No Genitourinary: Yes Prostate Problems Gastrointestinal: Yes (HERNIA; COLON CANCER) Abdominal Hernia, Polyps, Gall Bladder Disease Musculoskeletal: Yes Arthritis Endocrine: Yes (BORDERLINE DIABETIC) HEENT: Yes (GLASSES) Cataract Loss of Vision: Bilateral Hearing Impairment: Bilateral Hearing Aide 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, Colon Did You Recieve Any Treatments: Yes What Type of Treatment Did You: Surgical Intervention Psychosocial: Yes Anxiety Integumentary: No Blood Disorders: No Adverse Reaction/Blood Tranf: No (N/A) Family Medical History PAST SURGICAL HISTORY: -HERNIA REPAIR X 3 -APPENDECTOMY -COLON RESECTION FOR CANCER -COLONOSCOPIES -SURGERY TO REMOVE SKIN CANCER Physical Exam Vital Signs Vital Signs - First Documented Capillary Refill : Less Than 3 Seconds Height, Weight, BMI Height: 5'10.00" Weight: 179lbs. 0.0oz. [id number]; 22.00 BMI Method:Stated General Appearance: WD/WN, no apparent distress HEENT: PERRL/EOMI, TMs normal, pharynx normal, other (ABRASIONS TO FOREHEAD, NOSE, AND BELOW NOSE. NO INTRA-ORAL INJURY. NO MAXILLARY OR MANDIBULAR TENDERNESS. NO PERIORBITAL HEMATOMA. NO HYPHEMA. NO HEMOTYMPANUM. NO EPISTAXIS OR CLEAR FLUID FROM NOSE. ) Neck: other (IN CERVICAL COLLAR) Cardiovascular: no murmur, irregularly irregular Respiratory: chest non-tender, normal breath sounds, no respiratory distress, no accessory muscle use Gastrointestinal: non tender, soft Back: no CVA tenderness Extremities: normal range of motion, no pedal edema, no calf tenderness, normal capillary refill, other (2 CM SUPERFICIAL LACERATION TO RIGHT PALM, AT BASE OF 5TH FINGER. MOTOR/SENSORY/VASCULAR INTACT. MINOR ABRASION TO LEFT KNEE. NO BLEEDING. NO SWELLING. FULL ROM AND NO PAIN WITH WEIGHT BEARING . NO TENDERNESS OR EVIDENCE OF INJURY TO RIGHT KNEE. NO HIP TENDERNESS. NO ANKLE TENDERNESS. NO ARM TENDERNESS. MOTOR/SENSORY/VASCULAR INTACT TO ARMS AND LEGS. ABRASION/SKIN TEAR NOTED ON LEFT ELBOW. NO BLEEDING. NO BONY TENDERNESS. 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 ) Procedures/Interventions Suture Size: 5-0 Progress/Results/Core Measures Results/Orders Lab Results Laboratory Tests Test 06/08/22 18:30 Range/Units White Blood Count 9.0 4.3-11.0 10^3/uL Red Blood Count 3.84 L 4.30-5.52 10^6/uL Hemoglobin 12.4 L 13.3-17.7 g/dL Hematocrit 38 L 40-54 % Mean Corpuscular Volume 98 80-99 fL Mean Corpuscular Hemoglobin 32 25-34 pg Mean Corpuscular Hemoglobin Concent 33 32-36 g/dL Red Cell Distribution Width 13.5 10.0-14.5 % Platelet Count 230 130-400 10^3/uL Mean Platelet Volume 8.9 L 9.0-12.2 fL Immature Granulocyte % (Auto) 0 % Neutrophils (%) (Auto) 74 42-75 % Lymphocytes (%) (Auto) 17 12-44 % Monocytes (%) (Auto) 8 0-12 % Eosinophils (%) (Auto) 1 0-10 % Basophils (%) (Auto) 0 0-10 % Neutrophils # (Auto) 6.6 1.8-7.8 10^3/uL Lymphocytes # (Auto) 1.6 1.0-4.0 10^3/uL Monocytes # (Auto) 0.7 0.0-1.0 10^3/uL Eosinophils # (Auto) 0.1 0.0-0.3 10^3/uL Basophils # (Auto) 0.0 0.0-0.1 10^3/uL Immature Granulocyte # (Auto) 0.0 0.0-0.1 10^3/uL Prothrombin Time 17.0 H 12.2-14.7 SEC INR Comment 1.3 0.8-1.4 Activated Partial Thromboplast Time 31 24-35 SEC Sodium Level 138 135-145 MMOL/L Potassium Level 4.7 3.6-5.0 MMOL/L Chloride Level 102 98-107 MMOL/L Carbon Dioxide Level 28 21-32 MMOL/L Anion Gap 8 5-14 MMOL/L Blood Urea Nitrogen 23 H 7-18 MG/DL Creatinine 1.43 H 0.60-1.30 MG/DL Estimat Glomerular Filtration Rate 47 BUN/Creatinine Ratio 16 Glucose Level 117 H 70-105 MG/DL Calcium Level 10.4 H 8.5-10.1 MG/DL Corrected Calcium 10.2 H 8.5-10.1 MG/DL Total Bilirubin 0.3 0.1-1.0 MG/DL Aspartate Amino Transf (AST/SGOT) 28 5-34 U/L Alanine Aminotransferase (ALT/SGPT) 26 0-55 U/L Alkaline Phosphatase 60 40-136 U/L Total Protein 6.8 6.4-8.2 GM/DL Albumin 4.3 3.2-4.5 GM/DL My Orders Orders - VIKA CHRISTINA DO Ed Iv/Invasive Line Start (06/08/22 18:33) Monitor-Rhythm Ecg Trace Only (06/08/22 18:33) Ct Head/Face/Cervical Wo (06/08/22 18:33) Cbc With Automated Diff (06/08/22 18:33) Comprehensive Metabolic Panel (06/08/22 18:33) Protime With Inr (06/08/22 18:33) Partial Thromboplastin Time (06/08/22 18:33) Chest 1 View, Ap/Pa Only (06/08/22 18:33) Hand, Right, 3 Views (06/08/22 18:33) Cervical Collar (06/08/22 18:33) Wound Dressing-Ed (06/08/22 18:33) Vital Signs/I&O 06/08/22 06/08/22 18:21 18:21 Pulse 78 78 Resp 16 16 B/P (MAP) 142/79 (100) 142/79 (100) Pulse Ox 98 98 O2 Delivery Room Air Room Air Blood Pressure Mean: 100 Progress Progress Note : Progress Note CERVICAL COLLAR PLACED ON ARRIVAL ALL WOUNDS CLEANSED AND DRESSED. NONE REQUIRE SUTURING Diagnostic Imaging Comments XRAYS--PER RADIOLOGIST REPORTS AT 1906 CXR-- FINDINGS: Heart size upper limits but stable from prior. There is coarse nodular interstitial opacities bilaterally which given differing modalities is likely at least mildly progressed in the interim. It is unclear how much of this is progressive chronic interstitial lung disease versus an acute infectious or edematous component superimposed. No effusion. No pneumothorax. No overt vascular congestion. IMPRESSION: 1. When correlated with prior chest CT, increased nodular interstitial changes bilaterally, either worsening chronic fibrotic disease or reflective of acute infectious etiology versus edema. Stable heart size and no overt vascular congestion. No pleural pathology. 2. No posttraumatic abnormality apparent. RIGHT HAND-- FINDINGS: The bones appear of low bone mineral density. There are advanced arthritic changes present within the wrist and hand. There are marked arthritic changes within the interphalangeal joints. There is no identified fracture or findings of joint dislocation. IMPRESSION: 1. No identified fracture or dislocation. 2. Low bone mineral density with advanced wrist and hand arthritic changes with particular involvement of the interphalangeal joints. CT HEAD/MAXILLOFACIALS/CERVICAL SPINE--PER RADIOLOGIST REPORT AT 1949 FINDINGS: CT of the head demonstrates advanced age-related volume loss. There are some chronic calcifications in the basal ganglia. There are no findings of acute hemorrhage. There is no evidence of an abnormal extra-axial collection. There is no territorial loss of farias-white differentiation. There is no mass effect. There is no hydrocephalus. The basilar cisterns are patent. The CT of the face demonstrates some soft tissue swelling overlying the nasal bones and there appear to be bilateral nondisplaced nasal bone fractures. There is no blood evident within the paranasal sinuses. The bony orbit appears intact. The intraorbital contents are unremarkable. There is no fracture evident of the zygomatic arches. There is no fracture evident of the maxilla. The pterygoids are intact. There is no TMJ dislocation or evidence of a mandibular fracture. Cervical spine demonstrates multilevel cervical degenerative disc disease and facet arthropathy. There are advanced endplate changes present. Alignment is unchanged from the previous exam. There is a stable anterolisthesis of C4 on C5. Craniocervical junction relationships are maintained. There are normal relationships of the lateral masses of C1 and C2. The facets are normally aligned. There is no facet joint or disc space widening. The vertebral body heights are maintained without evidence of an acute cervical spine fracture. The soft tissues of the neck demonstrate no acute process. There are carotid atherosclerotic calcifications. IMPRESSION: 1. CT head demonstrates advanced age-related volume loss without evidence of hemorrhage or an acute intracranial abnormality. 2. CT face demonstrates nasal soft tissue swelling as well as what appear to be nondisplaced bilateral nasal bone fractures. 3. No other facial fracture evident. Orbits unremarkable. There is no blood within the paranasal sinuses. 4. Advanced degenerative features of the cervical spine without findings of fracture or traumatic malalignment. Alignment is stable from previous study. Reviewed: Reviewed by Me Departure Impression Primary Impression: Fall from standing Additional Impressions: Minor head injury without loss of consciousness Closed fracture of nasal bones FACIAL ABRASIONS AND CONTUSION Neck strain ELIQUIS THERAPY SKIN ABRASIONS AND SUPERFICIAL LACERATIONS OF MULTIPLE SITES Disposition: 01 HOME, SELF-CARE Condition: Stable Departure-Patient Inst. Decision time for Depature: 19:50 Referrals: TIFF LANCE DO (PCP) Primary Care Physician Patient Instructions: Cervical Sprain ED, Contusion (DC), Minor Head Injury, Adult ED, Nose Fracture ED, Preventing Falls in Older Adults, Skin Abrasions (DC) Add. Discharge Instructions: LEAVE DRESSINGS IN PLACE FOR 24 HOURS AFTER 24 HOURS, GENTLY CLEAN AREAS TWICE A DAY WITH SOAP AND WATER ON A Q-TIP, APPLY ANTIBIOTIC OINTMENT AND FRESH DRESSINGS TWICE A DAY TYLENOL NEEDED FOR PAIN CONTINUE YOUR REGULAR MEDICATIONS PRESCRIBED DO NOT USE YOUR CPAP UNTIL YOU ARE RECHECKED AND CLEARED BY DR. PEÑA CALL DR. PEÑA'S OFFICE ON SATURDAY FOR FOLLOW UP APPOINTMENT FOLLOW UP WITH DR. LANCE FOR ALL OTHER CONCERNS RETURN TO ER IF YOUR SYMPTOMS WORSEN All discharge instructions reviewed with patient and/or family. Voiced understanding. VIKA CHRISTINA DO Jun 08, 2022 18:40
[2022-06-08 18:46] LABS: BASOPHILS % (AUTO) 0 % (0-10); EOSINOPHILS # (AUTO) 0.1 10^3/uL (0.0-0.3); EOSINOPHILS % (AUTO) 1 % (0-10); HEMATOCRIT 38 % (40-54); HEMOGLOBIN 12.4 g/dL (13.3-17.7); LYMPHOCYTES # (AUTO) 1.6 10^3/uL (1.0-4.0); LYMPHOCYTES % (AUTO) 17 % (12-44); MEAN CORPUSCULAR HEMOGLOBIN 32 pg (25-34); MEAN CORPUSCULAR HGB CONC 33 g/dL (32-36); MEAN CORPUSCULAR VOLUME 98 fL (80-99); MEAN PLATELET VOLUME 8.9 fL (9.0-12.2); MONOCYTES # (AUTO) 0.7 10^3/uL (0.0-1.0); MONOCYTES % (AUTO) 8 % (0-12); NEUTROPHILS # (AUTO) 6.6 10^3/uL (1.8-7.8); NEUTROPHILS % (AUTO) 74 % (42-75); PLATELET COUNT 230 10^3/uL (130-400)
[2022-06-08 19:03] LABS: INR 1.3 (0.8-1.4)
--- NOTE | 2022-06-08 19:03 | Diagnostic Imaging Report ---
INDICATION: Hand pain. Fall. COMPARISON: No comparison of the right hand available. FINDINGS: The bones appear of low bone mineral density. There are advanced arthritic changes present within the wrist and hand. There are marked arthritic changes within the interphalangeal joints. There is no identified fracture or findings of joint dislocation. IMPRESSION: 1. No identified fracture or dislocation. 2. Low bone mineral density with advanced wrist and hand arthritic changes with particular involvement of the interphalangeal joints. Dictated by: Dictated on workstation # [id number]
--- NOTE | 2022-06-08 19:05 | Diagnostic Imaging Report ---
INDICATION: Fall, pain. COMPARISON: No priors for direct comparison study however correlated with chest CT performed 02/17/2021. FINDINGS: Heart size upper limits but stable from prior. There is coarse nodular interstitial opacities bilaterally which given differing modalities is likely at least mildly progressed in the interim. It is unclear how much of this is progressive chronic interstitial lung disease versus an acute infectious or edematous component superimposed. No effusion. No pneumothorax. No overt vascular congestion. IMPRESSION: 1. When correlated with prior chest CT, increased nodular interstitial changes bilaterally, either worsening chronic fibrotic disease or reflective of acute infectious etiology versus edema. Stable heart size and no overt vascular congestion. No pleural pathology. 2. No posttraumatic abnormality apparent. Dictated by: Dictated on workstation # [id number]
[2022-06-08 19:08] LABS: ALBUMIN 4.3 GM/DL (3.2-4.5); POTASSIUM 4.7 MMOL/L (3.6-5.0)
[2022-06-08 19:09] LABS: CALCIUM 10.4 MG/DL (8.5-10.1)
[2022-06-08 19:10] LABS: TOTAL PROTEIN 6.8 GM/DL (6.4-8.2)
[2022-06-08 19:12] LABS: BILIRUBIN,TOTAL 0.3 MG/DL (0.1-1.0)
[2022-06-08 19:14] LABS: CREATININE SERUM 1.43 MG/DL (0.60-1.30)
--- NOTE | 2022-06-08 19:42 | Diagnostic Imaging Report ---
PROCEDURE: CT head, face, and cervical spine without contrast. TECHNIQUE: Multiple contiguous axial images were obtained through the head, neck, and facial bones without the use of intravenous contrast. Sagittal and coronal reformations through the cervical spine and facial bones were also performed. Auto Exposure Controls were utilized during the CT exam to meet ALARA standards for radiation dose reduction. INDICATION: Head, neck and face pain. Fall. COMPARISON: July 17, 2021. FINDINGS: CT of the head demonstrates advanced age-related volume loss. There are some chronic calcifications in the basal ganglia. There are no findings of acute hemorrhage. There is no evidence of an abnormal extra-axial collection. There is no territorial loss of farias-white differentiation. There is no mass effect. There is no hydrocephalus. The basilar cisterns are patent. The CT of the face demonstrates some soft tissue swelling overlying the nasal bones and there appear to be bilateral nondisplaced nasal bone fractures. There is no blood evident within the paranasal sinuses. The bony orbit appears intact. The intraorbital contents are unremarkable. There is no fracture evident of the zygomatic arches. There is no fracture evident of the maxilla. The pterygoids are intact. There is no TMJ dislocation or evidence of a mandibular fracture. Cervical spine demonstrates multilevel cervical degenerative disc disease and facet arthropathy. There are advanced endplate changes present. Alignment is unchanged from the previous exam. There is a stable anterolisthesis of C4 on C5. Craniocervical junction relationships are maintained. There are normal relationships of the lateral masses of C1 and C2. The facets are normally aligned. There is no facet joint or disc space widening. The vertebral body heights are maintained without evidence of an acute cervical spine fracture. The soft tissues of the neck demonstrate no acute process. There are carotid atherosclerotic calcifications. IMPRESSION: 1. CT head demonstrates advanced age-related volume loss without evidence of hemorrhage or an acute intracranial abnormality. 2. CT face demonstrates nasal soft tissue swelling as well as what appear to be nondisplaced bilateral nasal bone fractures. 3. No other facial fracture evident. Orbits unremarkable. There is no blood within the paranasal sinuses. 4. Advanced degenerative features of the cervical spine without findings of fracture or traumatic malalignment. Alignment is stable from previous study. Dictated by: Dictated on workstation # [id number]
[2022-06-08] MEDS ORDERED: RX-MUPIROCIN (BACTROBAN) 2% OINT 22 GM TUBE TOP STA (20:02)
[2022-06-08 20:20] VITALS: BP 134/79
== END 2022-06-08 20:24 | disposition home or self-care (01) ==
LOC: EDUNIT# 18:10 → ER 18:12
DX: S09.90XA Unspecified injury of head, initial encounter (principal); S02.2XXA Fracture of nasal bones, initial encounter for closed fracture; S51.012A Laceration without foreign body of left elbow, initial encounter; S61.411A Laceration without foreign body of right hand, initial encounter; S16.1XXA Strain of muscle, fascia and tendon at neck level, initial encounter; S00.83XA Contusion of other part of head, initial encounter; I48.91 Unspecified atrial fibrillation; G47.30 Sleep apnea, unspecified; Z99.89 Dependence on other enabling machines and devices; Z79.01 Long term (current) use of anticoagulants; W18.30XA Fall on same level, unspecified, initial encounter; Y92.511 Restaurant or cafe as the place of occurrence of the external cause; Y93.01 Activity, walking, marching and hiking
CPT/HCPCS: 36415; 70450; 70486; 71045; 72125; 73130; 80053; 85025; 85610; 85730; 93041

== ENCOUNTER → 2022-08-30 | Outpatient (CLI) | payer MEDICARE, OTHER | LOC: CARD 09:44 | PROVIDERS: ATTEND Internal Medicine Cardiovascular Disease | DX: I51.7 Cardiomegaly (principal); I35.0 Nonrheumatic aortic (valve) stenosis; I34.0 Nonrheumatic mitral (valve) insufficiency; I34.81 Nonrheumatic mitral (valve) annulus calcification | CPT/HCPCS: 93306 ==

== ENCOUNTER → 2023-01-03 | Outpatient (CLI) | payer MEDICARE, OTHER ==
[2023-01-03 14:53] LABS: BILIRUBIN,URINE NEGATIVE (NEGATIVE); CLARITY,URINE CLEAR; COLOR,URINE YELLOW; GLUCOSE, URINE (UA) NEGATIVE (NEGATIVE); KETONES,URINE NEGATIVE (NEGATIVE); LEUKOCYTE ESTERASE ,URINE NEGATIVE (NEGATIVE); NITRITE,URINE NEGATIVE (NEGATIVE); PROTEIN,URINE NEGATIVE (NEGATIVE)
[2023-01-03 14:58] LABS: BASOPHILS % (AUTO) 0 % (0-10); EOSINOPHILS # (AUTO) 0.2 10^3/uL (0.0-0.3); EOSINOPHILS % (AUTO) 2 % (0-10); HEMATOCRIT 37 % (40-54); HEMOGLOBIN 12.1 g/dL (13.3-17.7); LYMPHOCYTES # (AUTO) 1.3 10^3/uL (1.0-4.0); LYMPHOCYTES % (AUTO) 16 % (12-44); MEAN CORPUSCULAR HEMOGLOBIN 32 pg (25-34); MEAN CORPUSCULAR HGB CONC 33 g/dL (32-36); MEAN CORPUSCULAR VOLUME 99 fL (80-99); MEAN PLATELET VOLUME 8.9 fL (9.0-12.2); MONOCYTES # (AUTO) 0.7 10^3/uL (0.0-1.0); MONOCYTES % (AUTO) 10 % (0-12); NEUTROPHILS # (AUTO) 5.4 10^3/uL (1.8-7.8); NEUTROPHILS % (AUTO) 71 % (42-75); PLATELET COUNT 232 10^3/uL (130-400); WHITE BLOOD COUNT 7.6 10^3/uL (4.3-11.0)
[2023-01-03 15:07] LABS: BACTERIA,URINE NEGATIVE /HPF
[2023-01-03 15:08] LABS: SQUAMOUS EPITHELIAL CELL,UR RARE /HPF
[2023-01-03 15:20] LABS: ALBUMIN 4.1 GM/DL (3.2-4.5); BILIRUBIN,TOTAL 0.5 MG/DL (0.1-1.0); CALCIUM 9.9 MG/DL (8.5-10.1); CREATININE SERUM 0.8 MG/DL (0.60-1.30); POTASSIUM 4.6 MMOL/L (3.6-5.0); TOTAL PROTEIN 6.5 GM/DL (6.4-8.2)
--- NOTE | 2023-01-03 15:37 | Diagnostic Imaging Report ---
INDICATION: OTHER LONG TIME DRUG THERAPY PREOP CARDIOVASCULAR EXAM AORTIC STENOSIS COMPARISON: 06/08/2022 FINDINGS: Frontal and lateral views of the chest demonstrate mild cardiomegaly. Pulmonary vasculature is within normal limits. Lungs show mild diffuse coarse prominence interstitial. This may be a chronic change. There is no focal consolidation, large effusion, pneumothorax. Osseous structures show no gross acute abnormalities. IMPRESSION: 1. Mild cardiomegaly. 2. Mild diffuse coarse prominence of the pulmonary interstitium. Again, this may be a chronic change. Dictated by: Dictated on workstation # [id number]
== END ==
LOC: CARD 14:24
PROVIDERS: ATTEND Thoracic Surgery (Cardiothoracic Vascular Surgery)
DX: Z01.810 Encounter for preprocedural cardiovascular examination (principal); Z01.812 Encounter for preprocedural laboratory examination; I35.0 Nonrheumatic aortic (valve) stenosis; I51.7 Cardiomegaly; Z79.899 Other long term (current) drug therapy
CPT/HCPCS: 36415; 71046; 80053; 81000; 83036; 85025; 87081; 93005

== ENCOUNTER → 2023-02-25 | Outpatient (CLI) | payer MEDICARE, OTHER ==
[2023-02-25 11:33] LABS: HEMOGLOBIN 11.9 g/dL (13.3-17.7)
== END ==
LOC: CARD 11:13
PROVIDERS: ATTEND Nurse Practitioner
DX: Z95.2 Presence of prosthetic heart valve (principal)
CPT/HCPCS: 36415; 82565; 85014; 85018; 93005

== ENCOUNTER → 2023-06-18 | Outpatient (CLI) | payer MEDICARE, OTHER ==
[~2023-06-18] MED LIST changes: -ESZO3TAB30 PO; +ESZO3TAB65 PO; -MECL-149 PO; +MECL-291 PO
--- NOTE | 2023-06-18 19:21 | Diagnostic Imaging Report ---
PROCEDURE: US Renal Bilateral. TECHNIQUE: Multiple real-time grayscale images were obtained over the kidneys in various projections bilaterally. INDICATION: Urinary frequency. FINDINGS: The right kidney is 11 cm, the left is 12 cm. Cortical thickness and echotexture is normal. No solid or cystic renal mass. No echogenic or shadowing stone. No hydronephrosis. The urinary bladder normal with bilateral ureteral jet patency confirmed with color Doppler analysis. IMPRESSION: Normal retroperitoneal ultrasound Dictated by: Dictated on workstation # [id number]
== END ==
LOC: RAD 13:59
PROVIDERS: ATTEND Specialist
DX: N40.1 Benign prostatic hyperplasia with lower urinary tract symptoms (principal)
CPT/HCPCS: 36415; 76770; 84153; 87077; 87088; 87186

== ENCOUNTER 2023-07-05 13:00 | Emergency (ER) | payer MEDICARE, OTHER ==
[~2023-07-05] VITALS: Ht 180.3 cm; Wt 69.9 kg
--- NOTE | 2023-07-05 13:44 | ED Fall/Injury ---
General Chief Complaint: Head/Cervical Problems Stated Complaint: FALL | HEAD INJ Nursing Triage Note: PATIENT C/O Rt. LOWER BACK PAIN AND HEAD PAIN AFTER HE FELL ABOUT 30 MINUTES AGO. PATIENT DENIES LOC AFTER OR DURING FALL. PATIENT STATES HE WAS USING HIS CANE TO SHUT A TRUNK DOOR WHEN HE CANE SLIPPED CAUSING HIM TO FALL BACKWARDS. PATIENT STATES HE HIT HIS HEAD ON CONCRETE. PATIENT DENIES ANY PAIN TO ANY EXTREMITY AND WAS ABLE TO WALK BACK TO ER ROOM #5. PATIENT STATES HIS LAST TETANUS SHOT WAS LESS THAN 5 HRS AGO. PATIENT STATES HE IS CURRENTLY ON A BLOOD THINNER. Source: patient Exam Limitations: no limitations (SHYANN ADLER APRN) History of Present Illness Date Seen by Provider: Jul 05, 2023 Time Seen by Provider: 13:16 Initial Comments 87-year-old male presents to the ER after a fall. He states that he was using his cane to close at the tailgate of his SUV and his cane slipped causing him to fall backwards. He hit the posterior portion of his head and is also complaining of right lower back pain. Denies dizziness prior to or after the fall. Denies loss of consciousness. Patient does take a blood thinner. His last tetanus was less than 5 years ago. (SHYANN ADLER APRN) Allergies and Home Medications Allergies Coded Allergies: Sulfa (Sulfonamide Antibiotics) (Unverified Allergy, Intermediate, CONFUSION/WEAKNESS, 10/11/17) Patient Home Medication List Home Medication List Reviewed: Yes (SHYANN ADLER APRN) Atenolol (Atenolol) 50 Mg Tablet, 25 MG PO DAILY, (Reported) Entered as Reported by: KARRI WELLS on 10/14/171621 Cephalexin (Cephalexin) 500 Mg Tablet, 500 MG PO QID Prescribed by: VIKA CHRISTINA on 07/17/212049 Eszopiclone (Lunesta) 3 Mg Tablet, 3 MG PO HS PRN for SLEEP, (Reported) Entered as Reported by: KARRI WELLS on 10/14/17 162 Finasteride (Finasteride) 5 Mg Tablet, 5 MG PO DAILY, (Reported) Entered as Reported by: CHRISTI MAZARIEGOS on 03/04/15 0859 Hydrocodone Bit/Acetaminophen (Lortab 5 Mg Tablet) 1 Each Tablet, 1-2 TAB PO Q8H PRN for PAIN-MODERATE, (Reported) Entered as Reported by: KARRI WELLS on 10/14/17 1622 Hydrocodone Bit/Acetaminophen (Lortab 5 Mg Tablet) 1 Tab Tab, 1-2 TAB PO 4-6HR PRN for PAIN Prescribed by: SELVIN MARIN on 10/16/17 0945 Meclizine HCl (Meclizine HCl) 25 Mg Tablet, 25 MG PO TID PRN for VERTIGO, (Reported) Entered as Reported by: CHRISTI MAZARIEGOS on 10/11/17 1102 Methocarbamol (Methocarbamol) 500 Mg Tablet, 500 MG PO Q6H Prescribed by: AROLDO SIDDIQUI on 12/21/20 1808 Simvastatin (Simvastatin) 40 Mg Tablet, 20 MG PO HS, (Reported) Entered as Reported by: KARRI WELLS on 10/14/17 1622 Terazosin HCl (Terazosin HCl) 5 Mg Capsule, 5 MG PO HS, (Reported) Entered as Reported by: CHRISTI MAZARIEGOS on 03/04/15 0859 Warfarin Sodium (Warfarin Sodium) 5 Mg Tablet, 5 MG PO DAILY, (Reported) Entered as Reported by: CHRISTI MAZARIEGOS on 10/11/17 1102 Review of Systems Review of Systems Constitutional: see HPI (SHYANN ADLER APRN) Past Nyqkytq-Zmrkpp-Hnhifr Hx Patient Social History Tobacco Use?: No Use of E-Cig and/or Vaping dev: No Substance use?: No Alcohol Use?: No (SHYANN ADLER APRN) Immunizations Up To Date Tetanus Booster (TDap): Less than 5yrs Influenza Vaccine Up-to-Date: Yes; Up-to-Date (SHYANN ADLER APRN) Seasonal Allergies Seasonal Allergies: No (SHYANN ADLER APRN) Past Medical History Surgeries: Yes (COLECTOMY, COCCYX) Abdominal, Appendectomy, Bowel Surgery, Orthopedic Respiratory: Yes Sleep Apnea Currently Using CPAP: Yes Cardiac: Yes Atrial Fibrillation, Chronic Edema/Swelling, High Cholesterol, Hypertension Neurological: No Reproductive Disorders: No Sexually Transmitted Disease: No HIV/AIDS: No Genitourinary: Yes Prostate Problems Gastrointestinal: Yes (HERNIA; COLON CANCER) Abdominal Hernia, Polyps, Gall Bladder Disease Musculoskeletal: Yes Arthritis Endocrine: Yes (BORDERLINE DIABETIC) HEENT: Yes (GLASSES) Cataract Loss of Vision: Bilateral Hearing Impairment: Bilateral Hearing Aide 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, Colon Did You Recieve Any Treatments: Yes What Type of Treatment Did You: Surgical Intervention Psychosocial: Yes Anxiety Integumentary: No Blood Disorders: No Adverse Reaction/Blood Tranf: No (N/A) (SHYANN ADLER APRN) Family Medical History PAST SURGICAL HISTORY: -HERNIA REPAIR X 3 -APPENDECTOMY -COLON RESECTION FOR CANCER -COLONOSCOPIES -SURGERY TO REMOVE SKIN CANCER (SHYANN ADLER APRN) Physical Exam Vital Signs Vital Signs - First Documented 07/05/23 07/05/23 13:05 14:55 Temp 36.4 Pulse 97 Resp 16 B/P (MAP) 139/82 (101) Pulse Ox 98 O2 Delivery Room Air (WALTER MCKEE MD) Vital Signs Capillary Refill : (SHYANN ADLER APRN) Height, Weight, BMI Height: 5'10.00" Weight: 179lbs. 0.0oz. 81.775448aq; 21.00 BMI Method:Stated General Appearance: WD/WN, no apparent distress HEENT: PERRL/EOMI, TMs normal, other (Hematoma to posterior head) Neck: full range of motion, supple, normal inspection, tender lateral (Left side) Cardiovascular: regular rate, rhythm Respiratory: lungs clear, normal breath sounds, no respiratory distress, no accessory muscle use Back: normal inspection, no vertebral tenderness, other (Tenderness right lower back/pelvis) Extremities: normal range of motion, non-tender, normal inspection Neurologic/Psychiatric: application development specialist II-XII nml as tested, no motor/sensory deficits, alert, normal mood/affect, oriented x 3, other (Patient ambulated to room with steady gait) Skin: normal color, warm/dry, other (Bradley to posterior head) (SHYANN ADLER APRN) Procedures/Interventions Suture Size: 5-0 (SHYANN ADLER APRN) Progress/Results/Core Measures Results/Orders Vital Signs/I&O 07/05/23 07/05/23 13:05 14:55 Temp 36.4 Pulse 97 98 Resp 16 14 B/P (MAP) 139/82 (101) 137/92 Pulse Ox 98 O2 Delivery Room Air Room Air (WALTER MCKEE MD) Blood Pressure Mean: 101 Progress Progress Note : Progress Note Patient seen and evaluated, resting comfortably in bed, no acute distress. Based on exam and symptoms, CT head and neck and x-ray of pelvis with right hip ordered. 1441 imaging reviewed. Pelvis and hip x-ray shows chronic degenerative changes, but no acute fracture or dislocation. CT shows no acute intracranial process, no intracranial hemorrhage. Small area of extracranial soft tissue swelling with no skull fracture. No cervical spine fracture. Does show degenerative changes of the cervical spine and small patchy areas of low-density white matter changes in both cerebral hemispheres likely related to small vessel ischemic disease. CT also shows paraseptal emphysematous changes. Results discussed with patient and . Wound to top of the head does not require sutures, wound was cleaned, Neosporin applied and bandage placed. Patient is stable for discharge. Discharge instructions and return precautions provided. (SHYANN ADLER APRN) Diagnostic Imaging Diagonstic Imaging: Xray Plain Films/CT/US/NM/MRI: pelvis, hip Comments [facility] [place], [place] NAME: RONALDO SANCHEZ [facility] REC#: [id number] PT STATUS: REG ER : 1935 PHYSICIAN: SHYANN ADLER APRN ADMIT DATE: 07/05/23/ER Draft Date of Exam:07/05/23 PELVIS WITH RIGHT HIP 2-3VIEWS INDICATION: Fall with pain. TECHNIQUE: An AP pelvis and two-view right hip were performed. FINDINGS: There are lower lumbar degenerative changes. There are arthritic changes to the bilateral hips. No pelvic fracture or dislocation is identified. No articular collapse. IMPRESSION: Chronic degenerative changes but no fracture or acute injury apparent at AP pelvic and two-view right hip radiographic series. Dictated on workstation # [id number] Dict: 07/05/23 1416 Trans: 07/05/23 1418 [id number] Interpreted by: MEMO WALDRON Electronically signed by: Diagonstic Imaging: CT Plain Films/CT/US/NM/MRI: c-spine, head Comments [facility] [place] [place] NAME: RONALDO SANCHEZ [facility] REC#: [id number] PT STATUS: REG ER : 1935 PHYSICIAN: SHYANN ADLER APRN ADMIT DATE: 07/05/23/ER Draft Date of Exam:07/05/23 CT HEAD/CERVICAL SPINE WO CLINICAL INDICATION: Patient with lower back pain and hip pain after he fell about 30 minutes ago. Patient denies loss of consciousness. The patient hit his head on concrete. EXAM: Head CT without IV contrast with sagittal and coronal reformations. Axial CT scan of the cervical spine with sagittal and coronal reformations. Auto Exposure Controls were utilized during the CT exam to meet ALARA standards for radiation dose reduction. COMPARISON: CT scan of the head, face, and cervical spine without contrast dated 06/08/2022. FINDINGS: Head CT: There is no evidence of acute cerebral infarct, intracranial hemorrhage, or gross mass effect. The brain parenchymal volume appears appropriate for patient's age. There are are small patchy areas of low density white matter changes involving both cerebral hemispheres, likely related to chronic small vessel ischemic disease. There is normal farias-white matter distinction. There is no significant midline shift or herniation. There is no evidence of hydrocephalus. The basal cisterns are unremarkable. There is a small area of extracranial soft tissue swelling involving the left posterior aspect of the head. There is no skull fracture. Skull, extracranial soft tissue, and orbits are unremarkable. The paranasal sinuses are unremarkable. Temporal bones show no significant abnormality. Cervical spine: There is no acute cervical spine fracture. There is degenerative grade 1 anterolisthesis of C7 on T1. There is grade 1 anterolisthesis of C4 on C5 which is degenerative with bilateral facet arthropathy/hypertrophy. There is multilevel significant loss of disk space height which is severe at the C3-C4, C5-C6, and C6-C7 levels. There is severe bilateral neuroforaminal narrowing at the C3-C4, C4-C5, and right C5-C6 level due to uncinate spurs and facet arthropathy. There is at least mild to moderate central canal narrowing at the C3-C4 level. There are multiple low-density nodules involving the thyroid gland bilaterally. There are small areas of calcifications involving both thyroid lobes. Paraseptal emphysematous changes are seen. IMPRESSION: 1: There is no acute intracranial process. There is no intracranial hemorrhage. 2: There is a small area of extracranial soft tissue swelling involving the left posterior aspect of the head. There is no skull fracture. 3: There is no acute cervical spine fracture. Dictated on workstation # [id number] Dict: 07/05/23 1357 Trans: 07/05/23 1412 [facility] [id number] Interpreted by: NASIR SALAZAR MD Electronically signed by: (SHYANN ADLER APRN) Departure Impression Primary Impression: Fall from standing Additional Impressions: Head injury Lower back pain Disposition: HOME, SELF-CARE Condition: Stable Departure-Patient Inst. Decision time for Depature: 14:48 (SHYANN ADLER APRN) Referrals: TIFF LANCE DO (PCP/Family) Primary Care Physician Patient Instructions: Head Injury in Adults (DC) Add. Discharge Instructions: Follow-up with primary care provider. Return for abnormal behavior, difficulty doing normal activities, weakness on one side your body, or any other new, concerning, or worsening symptoms. All discharge instructions reviewed with patient and/or family. Voiced understanding. ATTENDING PHYSICIAN NOTE: I was physically present as attending physician in the emergency department during the care of this patient, but I was not directly involved in the decision making or delivery of care for this patient. (WALTER MCKEE MD) SHYANN ADLER APRN Jul 05, 2023 13:44 WALTER MCKEE MD Jul 05, 2023 19:34
--- NOTE | 2023-07-05 14:13 | Diagnostic Imaging Report ---
CLINICAL INDICATION: Patient with lower back pain and hip pain after he fell about 30 minutes ago. Patient denies loss of consciousness. The patient hit his head on concrete. EXAM: Head CT without IV contrast with sagittal and coronal reformations. Axial CT scan of the cervical spine with sagittal and coronal reformations. Auto Exposure Controls were utilized during the CT exam to meet ALARA standards for radiation dose reduction. COMPARISON: CT scan of the head, face, and cervical spine without contrast dated 06/08/2022. FINDINGS: Head CT: There is no evidence of acute cerebral infarct, intracranial hemorrhage, or gross mass effect. The brain parenchymal volume appears appropriate for patient's age. There are are small patchy areas of low density white matter changes involving both cerebral hemispheres, likely related to chronic small vessel ischemic disease. There is normal farias-white matter distinction. There is no significant midline shift or herniation. There is no evidence of hydrocephalus. The basal cisterns are unremarkable. There is a small area of extracranial soft tissue swelling involving the left posterior aspect of the head. There is no skull fracture. Skull, extracranial soft tissue, and orbits are unremarkable. The paranasal sinuses are unremarkable. Temporal bones show no significant abnormality. Cervical spine: There is no acute cervical spine fracture. There is degenerative grade 1 anterolisthesis of C7 on T1. There is grade 1 anterolisthesis of C4 on C5 which is degenerative with bilateral facet arthropathy/hypertrophy. There is multilevel significant loss of disk space height which is severe at the C3-C4, C5-C6, and C6-C7 levels. There is severe bilateral neuroforaminal narrowing at the C3-C4, C4-C5, and right C5-C6 level due to uncinate spurs and facet arthropathy. There is at least mild to moderate central canal narrowing at the C3-C4 level. There are multiple low-density nodules involving the thyroid gland bilaterally. There are small areas of calcifications involving both thyroid lobes. Paraseptal emphysematous changes are seen. IMPRESSION: 1: There is no acute intracranial process. There is no intracranial hemorrhage. 2: There is a small area of extracranial soft tissue swelling involving the left posterior aspect of the head. There is no skull fracture. 3: There is no acute cervical spine fracture. Dictated by: Dictated on workstation # [id number]
--- NOTE | 2023-07-05 14:18 | Diagnostic Imaging Report ---
INDICATION: Fall with pain. TECHNIQUE: An AP pelvis and two-view right hip were performed. FINDINGS: There are lower lumbar degenerative changes. There are arthritic changes to the bilateral hips. No pelvic fracture or dislocation is identified. No articular collapse. IMPRESSION: Chronic degenerative changes but no fracture or acute injury apparent at AP pelvic and two-view right hip radiographic series. Dictated by: Dictated on workstation # [id number]
[2023-07-05 14:55] VITALS: BP 137/92
== END 2023-07-05 14:53 | disposition home or self-care (01) ==
LOC: EDUNIT# 13:00 → ER 13:01
DX: S09.90XA Unspecified injury of head, initial encounter (principal); M54.50 Low back pain, unspecified; W01.198A Fall on same level from slipping, tripping and stumbling with subsequent striking against other object, initial encounter; Z79.01 Long term (current) use of anticoagulants
CPT/HCPCS: 70450; 72125